=== PATIENT | male | born 1950 | race American Indian/Alaskan Native ===

== ENCOUNTER 2016-11-14 18:31 | Inpatient (IN) | payer MEDICARE ==
[2016-11-14] MEDS ORDERED: TYLENOL ONE (18:46)
[2016-11-14] MEDS ORDERED: NACL 0.9% 500 ML 500 ML IV ONE (18:46)
[2016-11-14] MEDS ORDERED: TYLENOL PO ONE (18:47)
[2016-11-14 19:13] LABS: Basophils % (Auto) 0.5 % (0.0-1.8); Hemoglobin 15.7 gm/dl (11.8-15.2); Mean Corpuscular HGB Conc 31 % (32-34); Mean Corpuscular Hemoglobin 22 pg (28-32); Mean Corpuscular Volume 70 fl (84-94); Platelet Count 172 K/mm3 (140-440); Red Blood Count 7.11 M/mm3 (3.65-5.03); Red Cell Distribution Width 15.9 % (13.2-15.2)
[2016-11-14 19:24] LABS: INR 1.4 (0.87-1.13)
[2016-11-14 19:35] LABS: Albumin 3.3 g/dL (3.9-5); Albumin/Globulin Ratio 0.6 %; BUN/Creatinine Ratio 13.6; Bilirubin,Total 0.5 mg/dL (0.1-1.2); Calcium 8.8 mg/dL (8.4-10.2); Chloride 90.1 mmol/L (98-107); Total Protein 8.7 g/dL (6.3-8.2)
[2016-11-14 20:03] LABS: Potassium 5.9 mmol/L (3.6-5.0)
[2016-11-14] MEDS ORDERED: NACL 0.9% 500 ML 500 ML ONE (21:37)
--- NOTE | 2016-11-14 21:57 | Emergency Department Report ---
HPI - General Chief Complaint: Weakness Time Seen by Provider: 11/14/16 21:26 - HPI HPI: This is a 66-year-old Afro-[place]er male presents to the emergency department with complaint of a one-day history of general weakness, fevers. Today he felt like he was off balance while walking. He has generalized body aches. 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 He had some nausea and vomiting today as well but that is since resolved. He was given some Aleve for his fever and his body aches with only some transient relief. No sick contacts at home. ED Past Medical Hx - Past Medical History Previous Medical History?: Yes Hx Hypertension: Yes Hx CVA: Yes (lefvt side weakness) Additional medical history: hi cholesterol - Surgical History Past Surgical History?: Yes Additional Surgical History: vp treasurer shunt p cva - Social History Smoking Status: Never Smoker Substance Use Type: Alcohol, Prescribed - Medications Home Medications: Home Medications Medication Instructions Recorded Confirmed Last Taken Type Aspirin [Aspirin BABY CHEW TAB] 81 mg PO BID 01/05/14 11/14/16 5 Days Ago History Lisinopril [Zestril] 40 mg PO QDAY 01/05/14 11/14/16 07/11/15 12:00 History Metoprolol [Lopressor TAB] 50 mg PO DAILY 01/05/14 11/14/16 07/11/15 12:00 History Rosuvastatin (Nf) [Crestor] 20 mg PO DAILY 01/05/14 11/14/16 07/11/15 12:00 History amLODIPine [Norvasc] 10 mg PO DAILY 01/05/14 11/14/16 07/11/15 12:00 History ED Review of Systems ROS: Stated complaint: COLD SX/COUGH / Other details as noted in HPI Constitutional: chills, fever, weakness Eyes: denies: eye pain, eye discharge, vision change ENT: denies: ear pain, throat pain Respiratory: denies: cough, shortness of breath, wheezing Cardiovascular: chest pain. denies: palpitations Gastrointestinal: nausea, vomiting. denies: abdominal pain, diarrhea Genitourinary: denies: urgency, dysuria Musculoskeletal: myalgia. denies: joint swelling Skin: denies: rash, lesions Neurological: denies: headache, weakness Physical Exam - Physical Exam Vital Signs: Vital Signs 11/14/16 11/14/16 18:40 21:34 Temperature 101.8 F H 101.1 F H Pulse Rate 114 H 107 H Respiratory 18 27 H Rate Blood Pressure 118/88 Blood Pressure 117/82 [Left] O2 Sat by Pulse 96 97 Oximetry Physical Exam: GENERAL: The patient is well-developed well-nourished. HEENT: Normocephalic. Atraumatic. Extraocular motions are intact. Patient has moist mucous membranes. Pupils equal reactive to light bilaterally. No nystagmus. NECK: Supple. Trachea is midline. CHEST/LUNGS: Clear to auscultation. There is no respiratory distress noted. HEART/CARDIOVASCULAR: Regular. There is mild tachycardia. There is no gallop rub or murmur. ABDOMEN: Abdomen is soft, nontender. Patient has normal bowel sounds. There is no abdominal distention. SKIN: Skin is warm and dry. NEURO: The patient is awake, alert, and oriented. The patient is cooperative. The patient has no focal neurologic deficits. The patient has normal speech. Patient has a slightly unbalanced gait with some ataxia. Cranial nerves II through XII grossly intact. There is a mild left upper extremity drift but the patient has chronic left upper extremity weakness. MUSCULOSKELETAL: There is no tenderness or deformity. There is no limitation range of motion. There is no evidence of acute injury. Radial pulse. 4 bilaterally. ED Course Vital Signs 11/14/16 11/14/16 18:40 21:34 Temperature 101.8 F H 101.1 F H Pulse Rate 114 H 107 H Respiratory 18 27 H Rate Blood Pressure 118/88 Blood Pressure 117/82 [Left] O2 Sat by Pulse 96 97 Oximetry ED Medical Decision Making - Lab Data Result diagrams: 11/14/16 23:55 11/14/16 18:56 - EKG Data -: EKG Interpreted by Me EKG shows normal: sinus rhythm, axis, intervals, QRS complexes, ST-T waves Rate: tachycardia (113 bpm) - EKG Data When compared to previous EKG there are: no significant change Interpretation: unchanged when compared t (01/05/14) - Radiology Data Radiology results: report reviewed, image reviewed interpreted by me: Chest x-ray is slightly rotated but there is a small infiltrate hazy opacity seen to the right lower lobe. CT of the head without contrast shows evidence of prior infarcts involving the periventricular white matter of the right frontal lobe in the left cerebellar hemisphere. No abnormal mass or acute intracranial hemorrhage is identified. There is relative hypodensity are seen in the white matter the cerebral hemispheres. This is a nonspecific finding. It may be related to chronic ischemic change from small vessel disease. - Medical Decision Making 66-year-old male presents to the emergency department with some generalized weakness, feeling unbalanced, and what he says is slower walking and talking than usual. He has a history of CVA with left-sided weakness worse in the upper extremities. Physical exam the patient does not appear to have any acute lateralizing deficits but he says that his speech and movement is abnormal. Eventually I was able to witness the patient ambulatory in the emergency department he does appear unstable with a slightly off balance and/or ataxic gait. CT of the head did not show any bleed, shift, mass or any acute process or changes but does show previous infarcts. Patient presents with a fever and was given Tylenol. He was found have some renal insufficiency so therefore Toradol was not given despite being given Aleve earlier by his family. Chest x- ray does not show any obvious pneumonia but there is a slightly patchy or hazy infiltrate towards the right lower lobe that may just be vasculature seen on this x-ray which is rotated. Nonetheless the patient will be covered with Levaquin. I do not believe that blood cultures were obtained but at this point in the workup the patient is refusing any further needle sticks. While the CT of the head did not show any bleed or any acute ischemic changes at this time, the patient will be admitted to hospital for further evaluation and possible MRI and has been accepted for admission by the hospitalist, Dr. Rocha. - Differential Diagnosis CVA, TIA, Pneumonia, Viral syndrome Critical Care Time: No Critical care attestation.: If time is entered above; I have spent that time in minutes in the direct care of this critically ill patient, excluding procedure time. ED Disposition Clinical Impression: Fever, Weakness, Unsteady gait, VARUN (acute kidney injury), Renal insufficiency Disposition: OP ADMIT IP TO THIS HOSP Is pt being admited?: Yes Condition: Stable Referrals: PRIMARY CARE, [Primary Care Provider] - 3-5 Days Time of Disposition: :59
--- NOTE | 2016-11-14 22:43 | Cat Scan Report ---
FINAL REPORT EXAM: CT HEAD/BRAIN WO CON HISTORY: Weakness TECHNIQUE: Noncontrast serial axial images from skullbase to vertex PRIORS: None. FINDINGS: There is no midline shift. There is ex vacuo change in the frontal horn of the right lateral ventricle. There is asymmetric hypodensity in the periventricular white matter associated with this. Basilar cisterns are patent. No acute intracranial hemorrhage is identified. There are linear hypodense foci in the posterior aspect of the left cerebellar hemisphere. Areas of relative hypodensity are seen in the white matter of the cerebral hemispheres. Atherosclerotic calcifications are noted. Paranasal sinuses and mastoid air cells are well aerated. No acute osseous abnormality is identified. IMPRESSION: 1. There is evidence of prior infarcts involving the periventricular white matter of the right frontal lobe in the left cerebellar hemisphere. 2. No abnormal mass or acute intracranial hemorrhage is identified. 3. Areas of relative hypodensity are seen in the white matter of the cerebral hemispheres. This is a nonspecific finding. It may be related to chronic ischemic change from small vessel disease.
[2016-11-15 00:36] LABS: Basophils % (Auto) 0.5 % (0.0-1.8); Hematocrit 43.2 % (35.5-45.6); Hemoglobin 13.9 gm/dl (11.8-15.2); Mean Corpuscular HGB Conc 32 % (32-34); Mean Corpuscular Volume 70 fl (84-94); Platelet Count 157 K/mm3 (140-440); Red Blood Count 6.16 M/mm3 (3.65-5.03); Red Cell Distribution Width 15.8 % (13.2-15.2); White Blood Count 10.1 K/mm3 (4.5-11.0)
[2016-11-15 00:44] LABS: INR 1.41 (0.87-1.13)
[2016-11-15 00:45] LABS: Partial Thromboplastin Time 29.2 Sec. (24.2-36.6)
[2016-11-15] MEDS ORDERED: TYLENOL PO ONE (00:50)
[2016-11-15] MEDS ORDERED: NACL 0.9% 1000 ML 1,000 ML IV ONE (00:50)
[2016-11-15 01:06] LABS: Mean Corpuscular Hemoglobin 23 pg (28-32)
[2016-11-15 01:13] LABS: Albumin 3.5 g/dL (3.9-5); Albumin/Globulin Ratio 0.8 %; BUN/Creatinine Ratio 15.83; Bilirubin,Total 0.4 mg/dL (0.1-1.2); Calcium 8.5 mg/dL (8.4-10.2); Chloride 92.7 mmol/L (98-107); Potassium 4.3 mmol/L (3.6-5.0); Total Protein 8.1 g/dL (6.3-8.2)
[2016-11-15] MEDS ORDERED: LEVAQUIN 750MG/150ML 750 MG/150 ML BAG IV ONE (01:55)
[2016-11-15] MEDS ORDERED: KIONEX PO ONE (03:17)
[2016-11-15] MEDS ORDERED: ZOFRAN IV PRN (03:24)
[2016-11-15] MEDS ORDERED: TYLENOL PO PRN (03:25)
--- NOTE | 2016-11-15 03:37 | History and Physical Report ---
History of Present Illness Date of examination: 11/15/16 Date of admission: 11/15/2016 Chief complaint: Chief complaint is generalized weakness, other complaints include unsteady gait and slurred speech History of present illness: History of present illness, patient is a 66-year-old male who has been feeling weak all over for the last 24 hours and also complained about unsteady gait and slurred speech. Patient said he tends to fall to one side when he tries to walk , there is no history of chest pain no history of shortness of breath, however patient had nausea vomiting and also fever. There is no history of headache dizziness or numbness anywhere in the body Past History Past Medical History: hypertension, hyperlipidemia, stroke Past Surgical History: Other (P CVA SHUNT) Social history: no significant social history Family history: no significant family history Medications and Allergies Allergies Allergy/AdvReac Type Severity Reaction Status Date / Time No Known Allergies Allergy Verified 01/05/14 22:10 Home Medications Medication Instructions Recorded Confirmed Last Taken Type Aspirin [Aspirin BABY CHEW TAB] 81 mg PO BID 01/05/14 11/14/16 5 Days Ago History Lisinopril [Zestril] 40 mg PO QDAY 01/05/14 11/14/16 07/11/15 12:00 History Metoprolol [Lopressor TAB] 50 mg PO DAILY 01/05/14 11/14/16 07/11/15 12:00 History Rosuvastatin (Nf) [Crestor] 20 mg PO DAILY 01/05/14 11/14/16 07/11/15 12:00 History amLODIPine [Norvasc] 10 mg PO DAILY 01/05/14 11/14/16 07/11/15 12:00 History Active Meds: Active Medications Acetaminophen (Tylenol) 650 mg PO Q4H PRN PRN Reason: Fever Aspirin (Aspirin) 325 mg PO QDAY PERRY Sodium Chloride (Nacl 0.9% 1000 Ml) 1,000 mls @ 250 mls/hr IV ONCE ONE Stop: 11/15/16 04:49 Last Admin: 11/15/16 01:05 Dose: 250 mls/hr Sodium Chloride (Nacl 0.9% 1000 Ml) 1,000 mls @ 75 mls/hr IV DIRECT PERRY Ondansetron HCl (Zofran) 4 mg IV Q6H PRN PRN Reason: Nausea And Vomiting Sodium Polystyrene Sulfonate (Kionex) 30 gm PO ONCE ONE Stop: 11/15/16 03:18 Review of Systems Constitutional: fever, weakness, no weight gain, no chills, no sweats, no lethargy Eyes: bilateral: other (NO BILATERAL EYE SYMPTOMS) Ears, nose, mouth and throat: no ear pain, no ear discharge, no tinnitis, no decreased hearing, no nose pain, no nasal congestion, no nasal discharge, no sinus pressure, no bleeding gums, no dental pain, no mouth pain, no dysphagia, no hoarseness, no sore throat, no swelling in mouth, no swelling in throat, no post-nasal drip, no headache, no vertigo, no pain front of neck, no neck fullness/pressure Cardiovascular: high blood pressure, no chest pain, no orthopnea, no palpitations, no rapid/irregular heart beat, no edema, no syncope, no lightheadedness, no shortness of breath, no dyspnea on exertion, no paroxysmal nocturnal dyspnea, no claudication, no leg edema, no decreased exercise tolerance Respiratory: no cough, no cough with sputum, no excessive sputum, no hemoptysis , no shortness of breath, no dyspnea on exertion, no wheezing, no pleurisy, no pain, no pain on inspiration, no snoring, no sleep apnea, no respiratory infections, no home oxygen Gastrointestinal: nausea, vomiting, no abdominal pain, no diarrhea, no constipation, no change in bowel habits, no melena, no hematochezia, no loss of appetite, no early satiety, no jaundice, no dyspepsia/bloating, no early satiety Genitourinary Male: no dysuria, no hematuria, no flank pain, no urinary frequency, no urinary hesitancy, no nocturia, no incontinence, no genital sores , no impotence, no decreased libido, no testicular pain, no testicular lump, no difficulties fathering child Rectal: no pain, no incontinence, no bleeding, no itching, no hemorrhoids, no flatulence Musculoskeletal: no neck stiffness, no neck pain, no shooting arm pain, no arm numbness/tingling, no low back pain, no shooting leg pain, no morning stiffness , no muscle weakness, no muscle cramps, no myalgias, no atrophy, no frequent falls, no fractures Integumentary: no rash, no pruritis, no redness, no sores, no wounds, no jaundice, no boils, no growths, no bullae, no lesions, no darkening of skin, no depigmentation, no dryness, no color changes, no unusual bruising, no change in hair/nails, no brittle nails, no striae, no hirsutism, no foot/leg ulcers, no onychomycosis Neurological: weakness, change in speech, no head injury, no transient paralysis , no paralysis, no parathesias, no numbness, no tingling, no seizures, no syncope, no tremors, no ataxia, no lack of coordination, no headaches, no migraines, no convulsions, no aphasia, no change in mentation, no confusion, no memory loss, no changes in smell/taste, no balance difficulties, no motor disturbance, no sensory deficit, no double vision, no loss of vision, no hearing difficulties, no burning pain, no paralysis Psychiatric: no memory loss, no change in sleep habits, no sleep disturbances, no insomnia, no hypersomnia, no suicidal ideation, no disorientation, no hallucinations, no depression, no hopelessness, no anhedonia, no anxiety attacks , no difficulties concentrating, no confusion, no irritability, no sadness/ tearfullness, no mood swings Endocrine: no cold intolerance, no heat intolerance, no polyphagia, no excessive thirst, no polydipsia, no polyuria, no deepening of the voice, no thyroid mass, no palpatations, no high blood sugars Hematologic/Lymphatic: no easy bruising, no easy bleeding, no lymphadenopathy, no lymphedema, no thrombophilia, no other Allergic/Immunologic: no urticaria, no allergic rhinitis, no persistent infections, no anaphylaxis, no angioedema, no gluten intolerance, no seasonal allergies Exam - Constitutional Vitals: Temp Pulse Resp BP Pulse Ox 101.1 F H 104 H 28 H 124/92 97 11/14/16 21:34 11/14/16 22:00 11/14/16 22:00 11/14/16 22:00 11/14/16 22:00 General appearance: Present: no acute distress. Absent: well-nourished, disheveled - EENT Eyes: Present: PERRL, EOM intact. Absent: irregular pupil, conjunctival injection, mydriasis ENT: hearing intact, clear oral mucosa, dentition normal, no oropharyngeal erythema, no poor dentition, no edentulous - Neck Neck: Present: supple, normal ROM. Absent: enlarged thyroid, masses or JVD, carotid bruits - Respiratory Respiratory effort: normal - Cardiovascular Rhythm: regular Heart Sounds: Present: S1 & S2, gallop. Absent: systolic murmur, diastolic murmur, click - Extremities Extremities: no ischemia, No edema Peripheral Pulses: within normal limits - Abdominal General gastrointestinal: Present: soft, non-tender, non-distended, normal bowel sounds. Absent: tender, distended, rigid, hepatomegaly, splenomegaly Male genitourinary: Present: deferred - Rectal Rectal Exam: deferred - Integumentary Integumentary: Present: clear, warm, dry, normal turgor. Absent: jaundice, decreased turgor - Musculoskeletal Musculoskeletal: right sided weakness - Psychiatric Psychiatric: cooperative, no agitated, no depressed Results - Labs CBC & Chem 7: 11/14/16 23:55 11/14/16 18:56 Labs: Laboratory Last Values WBC 10.1 K/mm3 (4.5-11.0) 11/14/16 23:55 RBC 6.16 M/mm3 (3.65-5.03) H 11/14/16 23:55 Hgb 13.9 gm/dl (11.8-15.2) 11/14/16 23:55 Hct 43.2 % (35.5-45.6) D 11/14/16 23:55 MCV 70 fl (84-94) L 11/14/16 23:55 MCH 23 pg (28-32) L 11/14/16 23:55 MCHC 32 % (32-34) 11/14/16 23:55 RDW 15.8 % (13.2-15.2) H 11/14/16 23:55 Plt Count 157 K/mm3 (140-440) 11/14/16 23:55 Lymph % (Auto) 11.6 % (13.4-35.0) L 11/14/16 23:55 [place] % (Auto) 11.0 % (0.0-7.3) H 11/14/16 23:55 Eos % (Auto) 0.0 % (0.0-4.3) 11/14/16 23:55 Baso % (Auto) 0.5 % (0.0-1.8) 11/14/16 23:55 Lymph # 1.2 K/mm3 (1.2-5.4) 11/14/16 23:55 [place] # 1.1 K/mm3 (0.0-0.8) H 11/14/16 23:55 Eos # 0.0 K/mm3 (0.0-0.4) 11/14/16 23:55 Baso # 0.0 K/mm3 (0.0-0.1) 11/14/16 23:55 Seg Neutrophils % 76.9 % (40.0-70.0) H 11/14/16 23:55 Seg Neutrophils # 7.8 K/mm3 (1.8-7.7) H 11/14/16 23:55 PT 17.2 Sec. (12.2-14.9) H 11/14/16 23:55 INR 1.41 (0.87-1.13) H 11/14/16 23:55 APTT 29.2 Sec. (24.2-36.6) 11/14/16 23:55 VBG pH 7.322 (7.320-7.420) 11/14/16 22:04 Sodium 131 mmol/L (137-145) L 11/14/16 18:56 Potassium 5.9 mmol/L (3.6-5.0) H D 11/14/16 18:56 Chloride 90.1 mmol/L (98-107) L 11/14/16 18:56 Carbon Dioxide 24 mmol/L (22-30) D 11/14/16 18:56 Anion Gap 23 mmol/L 11/14/16 18:56 BUN 34 mg/dL (9-20) H 11/14/16 18:56 Creatinine 2.5 mg/dL (0.8-1.5) H 11/14/16 18:56 Estimated GFR 31 ml/min 11/14/16 18:56 BUN/Creatinine Ratio 13.60 % 11/14/16 18:56 Glucose 105 mg/dL (75-100) H 11/14/16 18:56 Lactic Acid 1.70 mmol/L (0.7-2.0) 11/14/16 22:04 Calcium 8.8 mg/dL (8.4-10.2) 11/14/16 18:56 Total Bilirubin 0.50 mg/dL (0.1-1.2) 11/14/16 18:56 AST 122 units/L (5-40) H 17 18:56 ALT 97 units/L (7-56) H 11/14/16 18:56 Alkaline Phosphatase 85 units/L (35-129) 11/14/16 18:56 Troponin T < 0.010 ng/mL (0.00-0.029) 11/14/16 00:00 Total Protein 8.7 g/dL (6.3-8.2) H 11/14/16 18:56 Albumin 3.3 g/dL (3.9-5) L 11/14/16 18:56 Albumin/Globulin Ratio 0.6 % 11/14/16 18:56 Assessment and Plan - Patient Problems (1) TIA (transient ischemic attack) Current Visit: Yes Status: Acute Qualifiers: Transient cerebral ischemia type: T Plan to address problem: Patient will be admitted to medical floor on telemetry for the treatment of TIA , patient will have MRI of the brain and MRA of the head without contrast done this morning, patient will also have 2-D echo done this morning as well as bilateral carotid Doppler done this morning. He will also have troponin level checked every 6 hours 2 levels. Patient will have physical therapy and speech therapy consult this morning as part of the workup for TIA and patient will have neurology consult with Dr. Tierney. Patient will be on aspirin 325 mg by mouth daily, and will be on I.V normal saline at 75 ml/hr, patient will be on when necessary medications like Tylenol by mouth for headache and fever and IV Zofran for nausea vomiting, patient will also have nephrology consult with and patient will have swallow studies done before eating. (2) Renal insufficiency Current Visit: Yes Status: Acute (3) Unsteady gait Current Visit: Yes Status: Acute (4) Weakness Current Visit: Yes Status: Acute
[2016-11-15] MEDS: NACL 0.9% 1000 ML 1,000 ML IV SCH ×2 (04:51→20:58)
--- NOTE | 2016-11-15 07:09 | XRay Report ---
Single view chest: History: Possible sepsis. Findings: Normal cardiomediastinal silhouette the trachea is midline. Air space densities right lower lobe. Normal CP angles. Impression: Right lower lobe pneumonia.
[2016-11-15 08:39] LABS: BUN/Creatinine Ratio 15.5; Calcium 7.4 mg/dL (8.4-10.2); Chloride 96.1 mmol/L (98-107); Potassium 4.4 mmol/L (3.6-5.0)
--- NOTE | 2016-11-15 10:46 | Consultation ---
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 CT head was showed chronic ischemic changes but no acute intracranial process. CXR showed pneumonia and he was started on levaquin. lab work showed abnormal Cr and elevated K. renal consult requested for acute kidney injury management Past History Past Medical History: hypertension, hyperlipidemia, stroke Past Surgical History: Other (P CVA SHUNT) Social history: no significant social history Family history: no significant family history Medications and Allergies Allergies Allergy/AdvReac Type Severity Reaction Status Date / Time No Known Allergies Allergy Verified 01/05/14 22:10 Home Medications Medication Instructions Recorded Confirmed Last Taken Type Aspirin [Aspirin BABY CHEW TAB] 81 mg PO BID 01/05/14 11/14/16 5 Days Ago History Lisinopril [Zestril] 40 mg PO QDAY 01/05/14 11/14/16 07/11/15 12:00 History Metoprolol [Lopressor TAB] 50 mg PO DAILY 01/05/14 11/14/16 07/11/15 12:00 History Rosuvastatin (Nf) [Crestor] 20 mg PO DAILY 01/05/14 11/14/16 07/11/15 12:00 History amLODIPine [Norvasc] 10 mg PO DAILY 01/05/14 11/14/16 07/11/15 12:00 History Active Meds: Active Medications Acetaminophen (Tylenol) 650 mg PO Q4H PRN PRN Reason: Fever Aspirin (Aspirin) 325 mg PO QDAY PERRY Sodium Chloride (Nacl 0.9% 1000 Ml) 1,000 mls @ 75 mls/hr IV DIRECT PERRY Last Admin: 11/15/16 04:51 Dose: 75 mls/hr Ondansetron HCl (Zofran) 4 mg IV Q6H PRN PRN Reason: Nausea And Vomiting Pneumococcal Polyvalent Vaccine (Pneumovax 23) 0.5 ml IM .ONCE ONE Stop: 11/15/16 12:01 Review of Systems All systems: negative (weakness, slurred speech) Exam - Vital Signs Vital signs: Vital Signs Temp Pulse Resp BP Pulse Ox 101.8 F H 114 H 18 118/88 96 11/14/16 18:40 11/14/16 18:40 11/14/16 18:40 11/14/16 18:40 11/14/16 18:40 - General Appearance General appearance: well-developed, well-nourished EENT: ATNC, PERRL, mucous membranes moist Neck: Present: neck supple Respiratory: Clear to Ascultation Heart: regular, S1S2 Gastrointestinal: Present: normoactive bowel sounds. Absent: tenderness, distended, guarding Integumentary: no rash, warm and dry Neurologic: no asterixis, alert and oriented x3 Musculoskeletal: Present: other (no edema in BLE) Psychiatric: mood/affect appropriate, cooperative Results - Lab Results 11/14/16 23:55 11/15/16 06:56 Most recent lab results Calcium 7.4 mg/dL (8.4-10.2) L D 11/15/16 06:56 Assessment and Plan - Patient Problems (1) TIA (transient ischemic attack) Current Visit: Yes Status: Acute Qualifiers: Transient cerebral ischemia type: T Plan to address problem: CT head negative for acute process MRA is pending neurology consult is pending on ASA and statins (2) Renal insufficiency Current Visit: Yes Status: Acute Plan to address problem: patient had normal Cr in 07/19, improved Cr since admission with IVF cont NS @ current rate cont to hold lisinopril will check renal US will check urine lytes and protein please renally dose meds strict I&O renal diet avoid nephrotoxins (3) Hypertension Current Visit: Yes Status: Acute Qualifiers: Hypertension type: H Plan to address problem: will monitor, off BP meds cont to hold ACEI (4) Hypo-osmolality and hyponatremia Current Visit: Yes Status: Acute Plan to address problem: improved with IVF (5) Hyperkalemia Current Visit: Yes Status: Acute Plan to address problem: resolved, low K diet (6) Pneumonia Current Visit: Yes Status: Acute Qualifiers: Pneumonia type: P Aspiration pneumonia type: A Laterality: L Lung location: L Plan to address problem: cultures are pending received levaquin
--- NOTE | 2016-11-15 11:13 | Event Note ---
Date: 11/15/16 Patient 66-year-old presented with slurred speech and left-sided weakness. He was admitted to rule out acute ischemic stroke. I have seen and examined him today. Continue current management. Dao for pneumonia.
--- NOTE | 2016-11-15 11:33 | Admit Criteria Form ---
Admission Criteria Documentation: NEUROLOGY GRG Clinical Indications for Admission to Inpatient Care (Place ' X' for any and all applicable criteria): Hospital admission is needed for appropriate care of the patient because of 1 or more of the following: [ ]I. Encephalitis [ ]II. Severe CUFF SETTER LOCKSTITCH infections indicated by 1 or more of the following(1)(2)(3) : [ ]a) Intracranial abscess [ ]b) Spinal abscess or myelitis [ ]c) Tuberculous or other nonbacterial, nonviral CUFF SETTER LOCKSTITCH infection(8) [ ]III. Vasculitis and 1 or more of the following(14)(15): []a) Altered mental status that is severe or persistent or other acute neurologic change []b) Psychosis []c) Seizure [ ]IV. Status epilepticus or repetitive seizures not controlled with emergent treatment [A] (7)(8) [ ]V. Altered mental status that is severe or persistent [ ]. Transient alteration in consciousness with high-risk etiology; examples include (12)(13): [ ]a) Cardiovascular source [ ]b) Cataplexy [ ]VII. Cerebral aneurysm requiring ANY ONE of the following(14): [ ]a) IV antihypertensives or vasoactive agents [ ]b) Sedation and analgesia for suspected leak [ ]c) Need for external ventricular drainage and cerebral perfusion pressure monitoring [ ]d) Emergent evaluation to determine need for surgical clipping or endovascular coiling by interventional radiology. If surgery is required ( Also use Craniotomy, Supratentorial, for Surgery of Bleeding Intracranial Aneurysm (for bleeding aneurysm) or Craniotomy, Supratentorial (for nonbleeding aneurysm) as appropriate. [ ]VIII. New-onset severe neurologic symptom requiring inpatient care indicated by ANY ONE of the following: [ ]a) Aphasia(15) [ ]b) Weakness (grade 3 or less) [ ]c) Paralysis (eg, hemiplegia) [ ]d) Spasticity(16) [ ]e) Dystonia [ ]e) Ataxia(17) [ ]f) Amnesia(18) [ ]g) Involuntary movements(19) [ ]h) Vertigo [ ] Visual loss [ ]i) Other severe neurologic finding (eg, papilledema, mass effect on imaging, myoclonus not treatable at alternative level of care (eg, observation care) [ ]IX. Guillain-Gaines syndrome(20) [ ]X. Myasthenia gravis crisis or inpatient monitoring need as indicated by 1 or more of the following(21): [ ]a) Intensive treatment (eg, course of plasmapheresis) with inadequate outpatient situation to monitor patients status [ ]b) Inadequate airway protection [ ]c) Respiratory insufficiency requiring intubation or inpatient. monitoring [ ]d) Progressive dysphagia with failure to thrive [ ]XI. Multiple sclerosis or other acute demyelinating disease requiring inpatient care as indicated by 1 or more of the following (22)(23): [ ]a) Acute severe deterioration requiring inpatient treatment (eg, IV steroids, plasmapheresis, close observation) [ ]b) Acute complication requiring inpatient care (eg, sepsis, severe decubitus, aspiration) [ ]XII.Parkinson disease requiring inpatient care (Also use Optimal Recovery Care Criteria or General Recovery Criteria as appropriate) indicated by 1 or more of the following(25): [ ]a) Infection (eg, aspiration pneumonia) not treatable at alternative level of care [ ]b Dehydration that is severe or persistent [ ]c) Life-threatening agitation or psychotic behavior not treatable on emergency, observation care, or alternative level (eg, residential) basis [ ]d) Severe medication withdrawal effects (eg, freezing, neuroleptic malignant syndrome) not responsive to emergency and observation care treatment ( as appropriate) [ ]e) Other severe manifestation not treatable at alternative level of care [ ]XII. Amyotrophic lateral sclerosis with inpatient care needs as indicated by ANY ONE of the following(26): [ ]a) Acute complications (eg, aspiration pneumonia, sepsis ) requiring inpatient care ( see other optimal Recovery Guideline as appropriate) [ ]b) Dehydration that is severe persistent AND artificial support desired [ ]c) Inadequate airway protection AND artificial support desired [ ]d) Severe ventilatory insufficiency AND artificial support desired [ ]XIII. Myasthenia gravis crisis or inpatient monitoring need as indicated by 1 or more of the following(21): [] a) Inadequate airway protection []b) Respiratory insufficiency requiring intubation or inpatient monitoring []c) Progressive dysphagia with failure to thrive []d) Intensive treatment (e.g., course of plasmapheresis) with inadequate outpatient situation to monitor patients status [ ]XIV. Multiple sclerosis or other acute demyelinating disease requiring inpatient care indicated by 1 or more of the following[C](36)(43)(44)(45)(46): []a) Acute severe deterioration requiring inpatient treatment (eg, IV steroids, plasmapheresis, close observation) []b) Acute complication requiring inpatient care (eg, sepsis, severe decubitus, aspiration) [ ]XV. Intracranial hypertension (e.g., pseudotumor cerebri) requiring inpatient care (e.g., acute visual loss, inadequate oral intake) (47)(48)(49) [ ]XVI. Parkinson disease requiring inpatient care (Also use Optimal Recovery Care Criteria or General Recovery Criteria as appropriate) indicated by 1 or more of the following(25): [] a) Infection (e.g., aspiration pneumonia) not treatable at alternative level of care []b) Volume depletion not responsive to emergency and observation care treatment (as appropriate) []c) Life-threatening agitation or psychotic behavior not treatable on emergency, observation care, or alternative level (e.g., residential) basis []d) Severe medication withdrawal effects (e.g., freezing, neuroleptic malignant syndrome) not responsive to emergency and observation care treatment (as appropriate) []e) Other severe manifestation not treatable at alternative level of care [ ]XVII. Amyotrophic lateral sclerosis with inpatient care needs as indicated by1 or more of the following(42): []a) Acute complications (eg, aspiration pneumonia, sepsis) requiring inpatient care (see other Optimal Recovery Guideline or General Recovery Guideline as appropriate) []b) Dehydration that is severe or persistent AND artificial support desired []c) Inadequate airway protection AND artificial support desired []d) Severe ventilatory insufficiency AND artificial support desired [ ]XVIII. Severe myopathy, neuropathy, or other neuromuscular disease indicated by 1 or more of the following(42)(52)(53)(54): []a ) New-onset severe diffuse weakness (eg, strength 3/5 or less) []b) Severe dysphagia []c) Dyspnea at rest or with minimal exertion (new) []d) Inadequate airway protection []e) Inadequate ventilation indicated by 1 or more of the following : i) Partial pressure of carbon dioxide greater than 44 mm Hg ( 5.9 kPa) (new) ii) Reduced peak expiratory flow rate (new) iii) Vital capacity less than 50% of predicted (less than 15 mL/kg) iv) Peak inspiratory force less negative than -30 cm H2O (- 2942 Pa) [ ]XVII.Complications of congenital or degenerative disease (eg, infection, seizures, dehydration, injury) not responsive to emergency and observation care treatment (as appropriate ) [C](16)(29)(30) [ ]XVIII.Suspected or confirmed nerve or muscle toxic injury, including ANY ONE of the following: [ ]a) Rhabdomyolysis(31) i) Acute renal failure ii) Dehydration that is severe or persistent iii) Altered mental status that is severe or persistent iv) Electrolyte abnormality that remains after emergency or observation level care ( as appropriate) [ ]b) Botulism(32) [ ]c) Other severe toxin-induced sign or symptom [ ]XIX. Neurologic trauma requiring inpatient treatment (medical) indicated by ANY ONE of the following(33)(34): [ ]a) Vital signs or neurologic signs more frequently than every 4 hours [ ]b) Hyperosmolar therapy [ ]c) Respiratory monitoring [ ]d) Intracranial pressure monitoring and treatment [ ]e) Stabilization and immobilization device placement (eg, braces, body jacket) [ ]f) Intubation & mechanical ventilation for airway protection or therapeutic hyperventilation [ ]g) Other treatment or monitoring needed that requires inpatient level of care [ ]XX.Complications of neurologic devices (eg, ventricular shunt, neurostimulator) requiring 1 or more of the following(35)(36): [ ]a) IV antibiotics with monitoring while awaiting culture results [ ]b) Monitoring for hydrocephalus [X ]XXI. Neurology condition symptom, or finding for which emergency and observation care have failed or are not considered appropriate. See General Criteria: Observation Care ISC, General Admission Criteria GRG, or Pediatric General Admission Criteria GRG guideline as appropriate. The original [facility] [employer] content created by [facility] has been revised. The portions of the content which have been revised are identified through the use of italic text or in bold, and [facility] has neither reviewed nor approved the modified material. All other unmodified content is copyright [facility] Please see references footnoted in the original [facility] 2016 Admission Criteria Met: Yes
--- NOTE | 2016-11-15 11:48 | Consultation ---
History of Present Illness Consult date: 11/15/16 Requesting physician: EARLENE ALVAREZ Reason for Consult: TIA Chief complaint: L sided weaknesx History of present illness: 66 YO M Hx stroke in approx 2009 residual L hemiparesis on ASA 81mg QDay who noted acute working of sx on 11/08. Sx are constant. There are no clear aggravating, relieving or temporal factors. Severity is such to limit use of the L side. Past History Past Medical History: hypertension, hyperlipidemia, stroke Past Surgical History: Other (P CVA SHUNT) Social history: no significant social history Family history: no significant family history Medications and Allergies Allergies Allergy/AdvReac Type Severity Reaction Status Date / Time No Known Allergies Allergy Verified 01/05/14 22:10 Home Medications Medication Instructions Recorded Confirmed Last Taken Type Aspirin [Aspirin BABY CHEW TAB] 81 mg PO BID 01/05/14 11/14/16 5 Days Ago History Lisinopril [Zestril] 40 mg PO QDAY 01/05/14 11/14/16 07/11/15 12:00 History Metoprolol [Lopressor TAB] 50 mg PO DAILY 01/05/14 11/14/16 07/11/15 12:00 History Rosuvastatin (Nf) [Crestor] 20 mg PO DAILY 01/05/14 11/14/16 07/11/15 12:00 History amLODIPine [Norvasc] 10 mg PO DAILY 01/05/14 11/14/16 07/11/15 12:00 History Active Meds: Active Medications Acetaminophen (Tylenol) 650 mg PO Q4H PRN PRN Reason: Fever Aspirin (Aspirin) 325 mg PO QDAY PERRY Sodium Chloride (Nacl 0.9% 1000 Ml) 1,000 mls @ 75 mls/hr IV DIRECT PERRY Last Admin: 11/15/16 04:51 Dose: 75 mls/hr Ondansetron HCl (Zofran) 4 mg IV Q6H PRN PRN Reason: Nausea And Vomiting Pneumococcal Polyvalent Vaccine (Pneumovax 23) 0.5 ml IM .ONCE ONE Stop: 11/15/16 12:01 Review of Systems All systems: negative Neurological: weakness, lack of coordination, gait dysfunction, motor disturbance, no paralysis, no numbness, no seizures, no syncope, no tremors, no headaches, no change in speech, no change in mentation, no sensory deficit Physical Examination - Vital Signs Vital Signs: Vital Signs Temp Pulse Resp BP Pulse Ox 101.8 F H 114 H 18 118/88 96 11/14/16 18:40 11/14/16 18:40 11/14/16 18:40 11/14/16 18:40 11/14/16 18:40 - Constitutional General appearance: comfortable - EENT EENT: Present: ATNC, PERRL, mucous membranes moist, hearing intact, vision intact - Respiratory Respiratory: Present: chest non-tender, normal breath sounds, no respiratory distress - Cardiovascular Cardiovascular: Present: regular rate Extremities: Present: no peripheral edema bilatateraly, no clubbing, cyanosis, no inflammation, no ischemia or petechiae - Gastrointestinal Gastrointestinal: Present: normoactive bowel sounds, soft, non-distended - Integumentary Integumentary: Present: normal - Neurologic Cranial nerve examination: PERRL, EOMI, V1/V2/V3 grossly intact, tongue midline , intact, Intact Vestibulo-ocular r, intact corneal reflex, facial droop (on L mild), normal palatal elevation Speech examination: intact Sensorimotor examination: pronator drift, hemiparesis (on L) Motor examination - right side: 5/5: biceps, triceps, wrist flexion, wrist extension, supervisor counseling and guidance, hip flexors, knee extensors, dorsiflexion, toe extension (EHL) , plantarflexion Motor examination - left side: 4/5: biceps, triceps, wrist flexion, wrist extension, supervisor counseling and guidance, hip flexors, knee extensors, dorsiflexion, toe extension (EHL) , plantarflexion Detailed sensory examination: intact, light touch Reflex and gait examination: Babinski's sign (on L) Reflexes: 0: ankle, 2+: bicep, knee, tricep Cerebellar examination: ataxia (on LUE) - Musculoskeletal Musculoskeletal: Present: no fluid collection, no pain, normal range of motion - Psychiatric Psychiatric: Present: mood/affect appropriate, cooperative Results - Laboratory Findings CBC and BMP: 11/14/16 23:55 11/15/16 06:56 Abnormal Lab Findings: Abnormal Labs 11/15/16 06:56 Sodium 136 L Chloride 96.1 L BUN 31 H Creatinine 2.0 H Calcium 7.4 L D Assessment and Plan 66 YO M Hx HTN/HLD/stroke in approx 2009 residual L hemiparesis on ASA 81mg QDay who noted acute working of sx on 11/08. I am suspicious for recurrent acute lacunar stroke. CTH nonacute R frontal and L cerebellar chronic ischemia. Plan and Recommendation: 1. No indication for pharmacologic thrombolysis with IV tPA or mechanical thrombectomy due to last known normal > 6 hrs from presentation. Current NIHSS 4. 2. Telemetry bed w/ Q4 hour neuro checks 3. Brain imaging: MRI Brain w/o Brock Stroke Protocol 4. Vascular Imaging: MRA Head w/o Brock & MRA Neck w/ Brock Stroke Protocol OR CTA Head/Neck w/ Contrast OR Bilateral Carotid Duplex U/S 5. TTE to eval for possible cardiac source of embolism 6. Serum Labs: HgA1c, LDL. 7. Autoregulate SBP to goal 120-160 as pt is outside permissive HTN window. 8. Secondary stroke prevention: ASA 325mg Daily x 1 then 81mg QDay, add Plavix 75mg Qday & upgrade to full dose statin therapy (Crestor 20mg or 40mg OR Lipitor 40mg or 80mg Daily OR Zocor 40mg QDay) for goal LDL < 70. 9. F/E/N: isotonic IVF prn, prn replete, bedside speech/swallow eval prior to PO intake. 10. DVT Prophylaxis 11. Stroke education, PT/OT/Speech Therapy consults, CM evaluation 12. For any changes in neurologic status, pls obtain STAT CTH w/o contrast and call neurology
[2016-11-15] MEDS ORDERED: PNEUMOVAX 23 IM ONE (12:00)
[2016-11-15 12:25] LABS: Bilirubin,Urine Negative (Negative); Ketones,Urine Negative (Negative)
[2016-11-15 12:28] LABS: Blood,Urine Small (Negative); Nitrite,Urine Negative (Negative); Urobilinogen,Urine < 0.2 mg/dL (<2.0)
[2016-11-15 12:29] LABS: Leukocyte Esterase,Urine Negative (Negative)
[2016-11-15 12:32] LABS: Mucus,Urine Rare /HPF
[2016-11-15 12:35] LABS: Bacteria,Urine 1+ /HPF (Negative)
[2016-11-15] MEDS ORDERED: D5NS 1,000 ML IV SCH (13:00)
--- NOTE | 2016-11-15 16:37 | Ultrasound Report ---
ULTRASOUND RENAL INDICATION: Renal failure. COMPARISON: None similar. FINDINGS: Renal sonography suggests normal/top normal renal cortical echogenicity. Grossly preserved contours. No hydronephrosis. RIGHT KIDNEY measures 9.9 x 4.3 x 4.4 cm with cortical thickness of 1.4 cm. LEFT KIDNEY estimated at 10.3 x 4.9 x 4.7 cm with cortical thickness of 1 cm. URINARY BLADDER suboptimally distended and assessed. CONCLUSION: No acute renal sonographic abnormality, as described. Thank you for the opportunity to participate in this patient's care.
--- NOTE | 2016-11-15 18:35 | Magnetic Resonance Report ---
FINAL REPORT EXAM: MR BRAIN WO CON HISTORY: TIA TECHNIQUE: Multi sequence multi planar MR images obtained of the brain without gadolinium. PRIORS: CT scan of the head from 11/14/2016 FINDINGS: There is moderate atrophy. There is no midline shift. There is malacia in right frontal lobe white matter and right basal ganglia with associated ex vacuo change in the right lateral ventricle. This appears similar to the prior study. Brainstem appears within normal limits. There are foci of hyperintense T2 and hypo intense T1 and FLAIR signal in the left cerebellar hemisphere. There are scattered foci of hyperintense FLAIR signal in the white matter of the cerebral hemispheres. Diffusion-weighted imaging does not show definite evidence of acute or subacute infarct. Orbits appear normal and symmetric. Paranasal sinuses appear clear. The craniocervical junction appears normal. IMPRESSION: 1. Sequelae from prior infarcts are seen in the deep white matter of the right frontal lobe and right basal ganglia as well as the left cerebellar hemisphere. 2. Diffusion-weighted imaging does not show definite evidence of acute or subacute infarct. 3. Foci of hyperintense FLAIR signal are seen in the white matter of the cerebral hemispheres. This is a nonspecific finding. It may be related to chronic ischemic change from small vessel disease.
--- NOTE | 2016-11-15 19:41 | Magnetic Resonance Report ---
FINAL REPORT EXAM: MR MRA/MRV HEAD WO CON HISTORY: TIA TECHNIQUE: MRA of the head was performed utilizing time of flight imaging. PRIORS: None. FINDINGS: No signal is seen in the distal right vertebral artery. The distal left vertebral artery is patent. Basilar artery is patent. There is stenosis in the basilar artery. Posterior cerebral arteries are patent bilaterally. The distal internal carotid arteries, middle cerebral arteries and anterior cerebral arteries are patent bilaterally. There is stenosis in distal right internal carotid artery. IMPRESSION: 1. No signal is seen in the distal right vertebral artery. This may indicate diminished flow, occlusion or reversal of flow. The patient can be further assessed with CT angiography or catheter directed angiography if indicated. 2. There stenosis in the distal right internal carotid artery. C1
[2016-11-15] MEDS: ASPIRIN PO SCH (20:20)
[2016-11-15] MEDS: PLAVIX PO SCH (20:20)
[2016-11-15] MEDS: PEPCID PO SCH (22:51)
--- NOTE | 2016-11-16 09:26 | Progress Note ---
Assessment and Plan Assessment and plan: Transient ischemic attack. Patient with previous stroke presented with slurred speech and left-sided weakness. MRI brain was negative for acute stroke. MRA of Brain showed possible stenosis of right vertebral artery and right internal carotid artery Left hemiparesis. Physical therapy following Abnormal MRA Brain with possible stenosis right vertebral and right internal carotid artery stenosis. Consult vasc surgery Diabetes mellitus type II. Check fingerstick glucose before every meal and at bedtime. Hypertension. Resume metoprolol. Hold Norvasc and I'll see his blood pressure is on the lower side. VARUN due to acute tubular necrosis. This is improving, creatinine is 1.8 today. Nephrology following Pneumonia right lower lobe. Started on Levaquin 750 mg IV daily. Blood cultures no growth up-to-date Fever secondary to pneumonia DVT prophylaxis with Heparin. Full CODE STATUS History Interval history: still has mild weakness left side Hospitalist Physical - Physical exam Narrative exam: Gen Appearance: Not in acute distress, HEENT: normocephalic, atraumatic Neck: supple, no JVD Lungs: clear to auscultation bilaterally, no crackles or wheezes Heart: S1 and S2 regular, no murmurs or gallop Abdomen: Soft, non tender, non distended normal bowel sounds, Extremity: No edema, no clubbing or cyanosis Neuro : Awake,alert,oriented x 3, mild left hemiparesis 4/5 Psych :normal mood - Constitutional Vitals: Temp Pulse Resp BP Pulse Ox 99.1 F 104 H 18 116/77 95 11/16/16 09:05 11/16/16 09:05 11/16/16 09:05 11/16/16 09:05 11/16/16 09:05 General appearance: Present: no acute distress. Absent: well-nourished, disheveled Results - Labs CBC & Chem 7: 11/16/16 12:30 11/16/16 12:30 Labs: Laboratory Last Values WBC 10.1 K/mm3 (4.5-11.0) 11/14/16 23:55 RBC 6.16 M/mm3 (3.65-5.03) H 11/14/16 23:55 Hgb 13.9 gm/dl (11.8-15.2) 11/14/16 23:55 Hct 43.2 % (35.5-45.6) D 11/14/16 23:55 MCV 70 fl (84-94) L 11/14/16 23:55 MCH 23 pg (28-32) L 11/14/16 23:55 MCHC 32 % (32-34) 11/14/16 23:55 RDW 15.8 % (13.2-15.2) H 11/14/16 23:55 Plt Count 157 K/mm3 (140-440) 11/14/16 23:55 Lymph % (Auto) 11.6 % (13.4-35.0) L 11/14/16 23:55 [place] % (Auto) 11.0 % (0.0-7.3) H 11/14/16 23:55 Eos % (Auto) 0.0 % (0.0-4.3) 11/14/16 23:55 Baso % (Auto) 0.5 % (0.0-1.8) 11/14/16 23:55 Lymph # 1.2 K/mm3 (1.2-5.4) 11/14/16 23:55 Webster # 1.1 K/mm3 (0.0-0.8) H 11/14/16 23:55 Eos # 0.0 K/mm3 (0.0-0.4) 11/14/16 23:55 Baso # 0.0 K/mm3 (0.0-0.1) 11/14/16 23:55 Seg Neutrophils % 76.9 % (40.0-70.0) H 11/14/16 23:55 Seg Neutrophils # 7.8 K/mm3 (1.8-7.7) H 11/14/16 23:55 PT 17.2 Sec. (12.2-14.9) H 11/14/16 23:55 INR 1.41 (0.87-1.13) H 11/14/16 23:55 APTT 29.2 Sec. (24.2-36.6) 11/14/16 23:55 VBG pH 7.322 (7.320-7.420) 11/14/16 22:04 Sodium 136 mmol/L (137-145) L 11/15/16 06:56 Potassium 4.4 mmol/L (3.6-5.0) D 11/15/16 06:56 Chloride 96.1 mmol/L (98-107) L 11/15/16 06:56 Carbon Dioxide 23 mmol/L (22-30) 11/15/16 06:56 Anion Gap 21 mmol/L 11/15/16 06:56 BUN 31 mg/dL (9-20) H 11/15/16 06:56 Creatinine 2.0 mg/dL (0.8-1.5) H 11/15/16 06:56 Estimated GFR 41 ml/min 11/15/16 06:56 BUN/Creatinine Ratio 15.50 % 11/15/16 06:56 Glucose 95 mg/dL (75-100) 11/15/16 06:56 Lactic Acid 1.70 mmol/L (0.7-2.0) 11/14/16 22:04 Calcium 7.4 mg/dL (8.4-10.2) L D 11/15/16 06:56 Total Bilirubin 0.50 mg/dL (0.1-1.2) 11/14/16 18:56 AST 122 units/L (5-40) H 11/14/16 18:56 ALT 97 units/L (7-56) H 11/14/16 18:56 Alkaline Phosphatase 85 units/L (35-129) 11/14/16 18:56 Troponin T < 0.010 ng/mL (0.00-0.029) 11/14/16 00:00 Total Protein 8.7 g/dL (6.3-8.2) H 11/14/16 18:56 Albumin 3.3 g/dL (3.9-5) L 11/14/16 18:56 Albumin/Globulin Ratio 0.6 % 11/14/16 18:56 LDL Cholesterol Direct 13 mg/dL (50-130) L 11/15/16 06:56 Urine Color Yellow (Yellow) 11/15/16 11:25 Urine Turbidity Clear (Clear) 11/15/16 11:25 Urine pH 5.0 (5.0-7.0) 11/15/16 11:25 Ur Specific [place] 1.010 (1.003-1.030) 11/15/16 11:25 Urine Protein 30 mg/dl mg/dL (Negative) 11/15/16 11:25 Urine Glucose (UA) Negative mg/dL (Negative) 11/15/16 11:25 Urine Ketones Negative mg/dL (Negative) 11/15/16 11:25 Urine Blood Small (Negative) A 11/15/16 11:25 Urine Nitrite Negative (Negative) 11/15/16 11:25 Urine Bilirubin Negative (Negative) 11/15/16 11:25 Urine Urobilinogen < 0.2 mg/dL (<2.0) 11/15/16 11:25 Ur Leukocyte Esterase Negative (Negative) 11/15/16 11:25 Urine WBC (Auto) 2.0 /HPF (0.0-6.0) 11/15/16 11:25 Urine RBC (Auto) 1.0 /HPF (0.0-6.0) 11/15/16 11:25 U Epithel Cells (Auto) 1.0 /HPF (0-13.0) 11/15/16 11:25 Urine Bacteria (Auto) 1+ /HPF (Negative) 11/15/16 11:25 Hyaline Casts Rare /LPF 11/15/16 11:25 Urine Mucus Rare /HPF 11/15/16 11:25 Urine Creatinine 65.6 mg/dL (0.1-20.0) H 11/15/16 11:25 Protein/Creatinin Ratio 0.50 11/15/16 11:25 Urine Sodium 98 mEq/L 11/15/16 11:25 Urine Total Protein 33 mg/dL (5-11.8) H 11/15/16 11:25
--- NOTE | 2016-11-16 09:29 | Progress Note ---
Assessment and Plan - Patient Problems (1) TIA (transient ischemic attack) Current Visit: Yes Status: Acute Qualifiers: Transient cerebral ischemia type: T Plan to address problem: Neurology on board, follow up MRI of Brain w/o contrast and MRA Head w/o contrast studies, on ASA, plavix, and statin, follow up recs (2) Acute renal failure Current Visit: Yes Status: Acute Qualifiers: Acute renal failure type: A Plan to address problem: Labs pending today On D5 0.9% NS infusion at 75 ml/hr Renally dose medications Status post renal ultrasound on 11/15/16 showed no hydronephrosis Obtain daily weight Blood pressure stable on current regimen Lisinopril on hold [place] Catheter: No Strict intake and output Intake= 1500 ml Output= 500 ml (Net= 1000 ml) Renal plan discussed with Dr Rust Continue supportive therapy (3) Pneumonia Current Visit: Yes Status: Acute Qualifiers: Pneumonia type: P Aspiration pneumonia type: A Laterality: L Lung location: L Plan to address problem: On Levaquin (4) Hypertension Current Visit: Yes Status: Acute Qualifiers: Hypertension type: H Plan to address problem: Blood pressure stable on current regimen Subjective Date of service: 11/16/16 Interval history: Patient reports having right arm/hand swelling from infiltration of peripheral IV (PIV), s/p removal of right arm PIV. Patient with swelling to his hand which makes it difficult to service captain items. No family at bedside Objective - Vital Signs Vital signs: Vital Signs - 12hr 11/16/16 11/16/16 11/16/16 00:00 05:00 05:53 Temperature 100.8 F H 98.5 F Pulse Rate 106 H Pulse Rate [ 107 H 103 H Right Radial] Respiratory 20 21 Rate Blood Pressure 123/85 132/75 [Right Arm] O2 Sat by Pulse 99 94 Oximetry 11/16/16 09:05 Temperature 99.1 F Pulse Rate Pulse Rate [ 104 H Right Radial] Respiratory 18 Rate Blood Pressure 116/77 [Right Arm] O2 Sat by Pulse 95 Oximetry - General Appearance General appearance: well-developed (no acute distress) EENT: ATNC Neck: no JVD Respiratory: Present: Clear to Ascultation. Absent: Rales, Ronchi Cardiology: regular, tachycardia, S1S2 Gastrointestinal: normoactive bowel sounds, no tenderness Integumentary: warm and dry Neurologic: alert and oriented x3 (moves all 4 extremities) Musculoskeletal: other (trace edema to both lower extremities; right arm/hand edematous- peripheral IV removed) Psychiatric: mood/affect appropriate, cooperative - Lab 11/14/16 23:55 11/15/16 06:56 Most recent lab results Calcium 7.4 mg/dL (8.4-10.2) L D 11/15/16 06:56 Urine Creatinine 65.6 mg/dL (0.1-20.0) H 11/15/16 11:25 Urine Sodium 98 mEq/L 11/15/16 11:25 Urine Total Protein 33 mg/dL (5-11.8) H 11/15/16 11:25
--- NOTE | 2016-11-16 10:23 | Fluoroscopy Report ---
Modified barium swallow under video fluoroscopy: History: Dysphagia. Findings: There was no definite anatomic obstruction to be flow of liquids, semisolid and solid food the cervical esophagus. No aspiration. Additional findings would be provided by speech therapist. Impression Findings as detailed above.
[2016-11-16] MEDS: PEPCID PO SCH ×2 (12:28→23:04)
[2016-11-16] MEDS: PLAVIX PO SCH (12:28)
[2016-11-16] MEDS: ASPIRIN PO SCH (12:28)
[2016-11-16 13:40] LABS: Basophils % (Auto) 0.8 % (0.0-1.8); Eosinophils % (Auto) 0.5 % (0.0-4.3); Hematocrit 44.1 % (35.5-45.6); Hemoglobin 14.5 gm/dl (11.8-15.2); Mean Corpuscular HGB Conc 33 % (32-34); Platelet Count 197 K/mm3 (140-440); Red Blood Count 6.32 M/mm3 (3.65-5.03); Red Cell Distribution Width 15.8 % (13.2-15.2); White Blood Count 9.1 K/mm3 (4.5-11.0)
[2016-11-16 13:41] LABS: Mean Corpuscular Hemoglobin 23 pg (28-32); Mean Corpuscular Volume 70 fl (84-94)
[2016-11-16 14:00] LABS: Calcium 8.5 mg/dL (8.4-10.2); Chloride 100.3 mmol/L (98-107); Potassium 4.9 mmol/L (3.6-5.0)
[2016-11-16] MEDS: LOPRESSOR PO SCH ×2 (17:56→23:04)
[2016-11-16] MEDS: HEPARIN SUB-Q SCH ×2 (17:56→23:03)
[2016-11-16] MEDS: LEVAQUIN 750MG/150ML 750 MG/150 ML BAG IV SCH (17:57)
[2016-11-17 05:29] LABS: Hematocrit 42.9 % (35.5-45.6); Hemoglobin 13.7 gm/dl (11.8-15.2); Mean Corpuscular HGB Conc 32 % (32-34); Mean Corpuscular Volume 70 fl (84-94); Red Cell Distribution Width 16.3 % (13.2-15.2); White Blood Count 6.2 K/mm3 (4.5-11.0)
[2016-11-17 05:31] LABS: Mean Corpuscular Hemoglobin 22 pg (28-32); Platelet Count 213 K/mm3 (140-440)
[2016-11-17 05:38] LABS: BUN/Creatinine Ratio 18.12; Calcium 8.3 mg/dL (8.4-10.2); Chloride 102.2 mmol/L (98-107); Phosphorous 2.8 mg/dL (2.5-4.5); Potassium 4.3 mmol/L (3.6-5.0)
[2016-11-17 06:16] LABS: Basophils % (Manual) 0 % (0.0-1.8); Blastocytes % (Manual) 0 %
[2016-11-17 06:17] LABS: Anisocytosis 1+; Diff Status Complete; Elliptocytes 1+; Platelet Estimate Consistent w Auto
[2016-11-17] MEDS: HEPARIN SUB-Q SCH ×3 (06:31→22:03)
[2016-11-17] MEDS: NACL 0.9% 1000 ML 1,000 ML IV SCH ×2 (06:41→22:03)
[2016-11-17] MEDS: LEVAQUIN 750MG/150ML 750 MG/150 ML BAG IV SCH (10:01)
[2016-11-17] MEDS: PLAVIX PO SCH (10:02)
[2016-11-17] MEDS: PEPCID PO SCH ×2 (10:02→22:02)
[2016-11-17] MEDS: LOPRESSOR PO SCH ×2 (10:02→22:02)
[2016-11-17] MEDS: ASPIRIN PO SCH (10:02)
--- NOTE | 2016-11-17 10:20 | Progress Note ---
Assessment and Plan - Patient Problems (1) TIA (transient ischemic attack) Current Visit: Yes Status: Acute Qualifiers: Transient cerebral ischemia type: T Plan to address problem: Neurology on board, on ASA, plavix, and statin, follow up neurology recs MRA Brain showed right internal carotid artery stenosis, possible right vertebral stenosis- vascular surgery consulted (2) Acute renal failure Current Visit: Yes Status: Acute Qualifiers: Acute renal failure type: A Plan to address problem: Renal function reviewed, SCr level decreased to 1.6 today, yesterday's SCr level was 1.8 On 0.9% NS infusion at 75 ml/hr Renally dose medications Obtain daily weight Blood pressure stable on current regimen Lisinopril on hold [place] Catheter: No Strict intake and output Intake= 1240 ml Output= 100 ml recorded (Net= 1140 ml) -> patient reports urinating a lot, but hasn't been saving his urine for measurement. Patient advised to save his urine so staff can record it. Patient voiced understanding. Renal plan discussed with Dr Rust Continue supportive therapy (3) Pneumonia Current Visit: Yes Status: Acute Qualifiers: Pneumonia type: P Aspiration pneumonia type: A Laterality: L Lung location: L Plan to address problem: On Levaquin 750 mg IVPB daily- as per primary team (4) Hypertension Current Visit: Yes Status: Acute Qualifiers: Hypertension type: H Plan to address problem: Blood pressure stable on current regimen Subjective Date of service: 11/17/16 Interval history: Patient reports feeling ok today, eating breakfast at time of my examination, denies nausea or vomiting. No family at bedside. Objective - Vital Signs Vital signs: Vital Signs - 12hr 11/17/16 11/17/16 11/17/16 00:44 05:19 08:31 Temperature 0 F L 98.6 F 98.5 F Pulse Rate [ 77 83 81 Right Radial] Respiratory 20 20 20 Rate Blood Pressure 111/80 111/87 126/82 [Right Arm] O2 Sat by Pulse 97 92 95 Oximetry - General Appearance General appearance: well-developed (no acute distress) EENT: ATNC Neck: no JVD Respiratory: Present: Clear to Ascultation Cardiology: regular, S1S2 Gastrointestinal: normoactive bowel sounds, no tenderness Integumentary: warm and dry Neurologic: alert and oriented x3 Musculoskeletal: other (right hand swelling noted; no edema to both lower extremities) Psychiatric: mood/affect appropriate, cooperative - Lab 11/17/16 04:46 11/17/16 04:46 Most recent lab results Calcium 8.3 mg/dL (8.4-10.2) L 11/17/16 04:46 Phosphorus 2.80 mg/dL (2.5-4.5) 11/17/16 04:46 Urine Creatinine 65.6 mg/dL (0.1-20.0) H 11/15/16 11:25 Urine Sodium 98 mEq/L 11/15/16 11:25 Urine Total Protein 33 mg/dL (5-11.8) H 11/15/16 11:25
--- NOTE | 2016-11-17 14:18 | Progress Note ---
Assessment and Plan Assessment and plan: Patient is a 66-year-old male who has been feeling weak all over for the last 24 hours and also complained about unsteady gait and slurred speech. Patient said he tends to fall to one side when he tries to walk, there is no history of chest pain no history of shortness of breath, however patient had nausea vomiting and also fever, the later has resolved. * RLL Pneumonia, aspiration pneumonitis * Sepsis secondary to above * TIA * Left Hemiparesis * Right Internal carotid stenosis * VARUN- Secondary to ATN * Diabetes Mellitus Type II * HTN * Plan: * Continue supportive care. PT, OT, await vascular evaluation for stenosis of the right vertebral artery and also right ICA * Increase statin therapy, continue BB, ASA, Neurology input noted * Continue abx, IV levaquin no further fever noted, cultures with no growth * Continue insulin therapy * Continue Accurate urine output * Continue to hold ACEI due to renal function * Swallow eval without evidence of Aspiration * Nephrology input noted, CREAT DOWN TO 1.6 Continue gentle hydration. * DVT/GI prophylaxis * Plan of care discussed in detail with the patient. History Interval history: Patient seen and examined, in no acute distress. still with left sided weakness. No adverse event noted by nursing staff. Hospitalist Physical - Physical exam Narrative exam: VITAL SIGNS: Reviewed. GENERAL: The patient appeared well nourished and normally developed. Vital signs as documented. HEAD: No signs of head trauma. EYES: Pupils are equal. Extraocular motions intact. EARS: Hearing grossly intact. MOUTH: Oropharynx is normal. NECK: No adenopathy, no JVD. CHEST: Chest with clear breath sounds bilaterally. No wheezes, rales, or rhonchi. CARDIAC: Regular rate and rhythm. S1 and S2, without murmurs, gallops, or rubs. VASCULAR: No Edema. Peripheral pulses normal and equal in all extremities. ABDOMEN: Soft, without detectable tenderness. No sign of distention. No rebound or guarding, and no masses palpated. Bowel Sounds normal. MUSCULOSKELETAL: Good range of motion of all major joints. Extremities without clubbing, cyanosis or edema. NEUROLOGIC EXAM: Alert and oriented x 3. 4/5 Motor strenghth left upper ext, no sensory deficit. Speech normal. Follows commands. PSYCHIATRIC: Mood normal. SKIN: No rash or lesions. - Constitutional Vitals: Temp Pulse Resp BP Pulse Ox 98.5 F 80 20 126/82 98 11/17/16 08:31 11/17/16 11:50 11/17/16 10:00 11/17/16 08:31 11/17/16 10:00 General appearance: Present: no acute distress. Absent: well-nourished, disheveled Results - Labs CBC & Chem 7: 11/17/16 04:46 11/17/16 04:46 Labs: Laboratory Last Values WBC 6.2 K/mm3 (4.5-11.0) 11/17/16 04:46 RBC 6.10 M/mm3 (3.65-5.03) H 11/17/16 04:46 Hgb 13.7 gm/dl (11.8-15.2) 11/17/16 04:46 Hct 42.9 % (35.5-45.6) 11/17/16 04:46 MCV 70 fl (84-94) L 11/17/16 04:46 MCH 22 pg (28-32) L 11/17/16 04:46 MCHC 32 % (32-34) 11/17/16 04:46 RDW 16.3 % (13.2-15.2) H 11/17/16 04:46 Plt Count 213 K/mm3 (140-440) 11/17/16 04:46 Lymph % (Auto) 14.9 % (13.4-35.0) 11/16/16 12:30 [place] % (Auto) Front Window Cashier 11/17/16 04:46 Eos % (Auto) 0.5 % (0.0-4.3) 11/16/16 12:30 Baso % (Auto) 0.8 % (0.0-1.8) 11/16/16 12:30 Lymph # 1.4 K/mm3 (1.2-5.4) 11/16/16 12:30 [place] # 1.3 K/mm3 (0.0-0.8) H 11/16/16 12:30 Eos # 0.0 K/mm3 (0.0-0.4) 11/16/16 12:30 Baso # 0.1 K/mm3 (0.0-0.1) 11/16/16 12:30 Add Manual Diff Complete 11/17/16 04:46 Total Counted 100 11/17/16 04:46 Seg Neutrophils % 69.9 % (40.0-70.0) 11/16/16 12:30 Seg Neuts % (Manual) 44.0 % (40.0-70.0) 11/17/16 04:46 Band Neutrophils % 12.0 % 11/17/16 04:46 Lymphocytes % (Manual) 25.0 % (13.4-35.0) 11/17/16 04:46 Reactive Lymphs % (Man) 7.0 % 11/17/16 04:46 Monocytes % (Manual) 7.0 % (0.0-7.3) 11/17/16 04:46 Eosinophils % (Manual) 5.0 % (0.0-4.3) H 11/17/16 04:46 Basophils % (Manual) 0 % (0.0-1.8) 11/17/16 04:46 Metamyelocytes % 0 % 11/17/16 04:46 Myelocytes % 0 % 11/17/16 04:46 Promyelocytes % 0 % 11/17/16 04:46 Blast Cells % 0 % 11/17/16 04:46 Nucleated RBC % Not Reportable 11/17/16 04:46 Seg Neutrophils # 6.4 K/mm3 (1.8-7.7) 11/16/16 12:30 Seg Neutrophils # Man 2.7 K/mm3 (1.8-7.7) 11/17/16 04:46 Band Neutrophils # 0.7 K/mm3 11/17/16 04:46 Lymphocytes # (Manual) 1.6 K/mm3 (1.2-5.4) 11/17/16 04:46 Abs React Lymphs (Man) 0.4 K/mm3 11/17/16 04:46 Monocytes # (Manual) 0.4 K/mm3 (0.0-0.8) 11/17/16 04:46 Eosinophils # (Manual) 0.3 K/mm3 (0.0-0.4) 11/17/16 04:46 Basophils # (Manual) 0.0 K/mm3 (0.0-0.1) 11/17/16 04:46 Metamyelocytes # 0.0 K/mm3 11/17/16 04:46 Myelocytes # 0.0 K/mm3 11/17/16 04:46 Promyelocytes # 0.0 K/mm3 11/17/16 04:46 Blast Cells # 0.0 K/mm3 11/17/16 04:46 WBC Morphology Not Reportable 11/17/16 04:46 Hypersegmented Neuts Not Reportable 11/17/16 04:46 Hyposegmented Neuts Not Reportable 11/17/16 04:46 Hypogranular Neuts Not Reportable 11/17/16 04:46 Smudge Cells Not Reportable 11/17/16 04:46 Toxic Granulation Not Reportable 11/17/16 04:46 Toxic Vacuolation Not Reportable 11/17/16 04:46 Dohle Bodies Not Reportable 11/17/16 04:46 Pelger-Huet Anomaly Not Reportable 11/17/16 04:46 Su Rods Not Reportable 11/17/16 04:46 Platelet Estimate Consistent w auto 11/17/16 04:46 Clumped Platelets Not Reportable 11/17/16 04:46 Plt Clumps, EDTA Not Reportable 11/17/16 04:46 Large Platelets Not Reportable 11/17/16 04:46 Giant Platelets Not Reportable 11/17/16 04:46 Platelet Satelliting Not Reportable 11/17/16 04:46 Plt Morphology Comment Not Reportable 11/17/16 04:46 RBC Morphology Not Reportable 11/17/16 04:46 Dimorphic RBCs Not Reportable 11/17/16 04:46 Polychromasia Not Reportable 11/17/16 04:46 Hypochromasia Not Reportable 11/17/16 04:46 Poikilocytosis Not Reportable 11/17/16 04:46 Anisocytosis 1+ 11/17/16 04:46 Microcytosis Not Reportable 11/17/16 04:46 Macrocytosis Not Reportable 11/17/16 04:46 Spherocytes Not Reportable 11/17/16 04:46 Pappenheimer Bodies Not Reportable 11/17/16 04:46 Sickle Cells Not Reportable 11/17/16 04:46 Target Cells Not Reportable 11/17/16 04:46 Tear Drop Cells Not Reportable 11/17/16 04:46 Ovalocytes Not Reportable 11/17/16 04:46 Helmet Cells Not Reportable 11/17/16 04:46 [place] Bodies Not Reportable 11/17/16 04:46 [place] Rings Not Reportable 11/17/16 04:46 Atilio Cells Not Reportable 11/17/16 04:46 Bite Cells Not Reportable 11/17/16 04:46 Crenated Cell Not Reportable 11/17/16 04:46 Elliptocytes 1+ 11/17/16 04:46 Acanthocytes (Spur) Not Reportable 11/17/16 04:46 Rouleaux Not Reportable 11/17/16 04:46 Hemoglobin C Crystals Not Reportable 11/17/16 04:46 Schistocytes Not Reportable 11/17/16 04:46 Malaria parasites Not Reportable 11/17/16 04:46 Jeromy Bodies Not Reportable 11/17/16 04:46 Hem Pathologist Commnt No 11/17/16 04:46 PT 17.2 Sec. (12.2-14.9) H 11/14/16 23:55 INR 1.41 (0.87-1.13) H 11/14/16 23:55 APTT 29.2 Sec. (24.2-36.6) 11/14/16 23:55 VBG pH 7.322 (7.320-7.420) 11/14/16 22:04 Sodium 142 mmol/L (137-145) 11/17/16 04:46 Potassium 4.3 mmol/L (3.6-5.0) 11/17/16 04:46 Chloride 102.2 mmol/L (98-107) 11/17/16 04:46 Carbon Dioxide 24 mmol/L (22-30) 11/17/16 04:46 Anion Gap 20 mmol/L 11/17/16 04:46 BUN 29 mg/dL (9-20) H 11/17/16 04:46 Creatinine 1.6 mg/dL (0.8-1.5) H 11/17/16 04:46 Estimated GFR 52 ml/min 11/17/16 04:46 BUN/Creatinine Ratio 18.12 % 11/17/16 04:46 Glucose 103 mg/dL (75-100) H 11/17/16 04:46 POC Glucose 108 (70-105) H 11/16/16 12:10 Lactic Acid 1.70 mmol/L (0.7-2.0) 11/14/16 22:04 Calcium 8.3 mg/dL (8.4-10.2) L 11/17/16 04:46 Phosphorus 2.80 mg/dL (2.5-4.5) 11/17/16 04:46 Total Bilirubin 0.50 mg/dL (0.1-1.2) 11/14/16 18:56 AST 122 units/L (5-40) H 11/14/16 18:56 ALT 97 units/L (7-56) H 11/14/16 18:56 Alkaline Phosphatase 85 units/L (35-129) 11/14/16 18:56 Troponin T < 0.010 ng/mL (0.00-0.029) 11/14/16 00:00 Total Protein 8.7 g/dL (6.3-8.2) H 11/14/16 18:56 Albumin 3.3 g/dL (3.9-5) L 11/14/16 18:56 Albumin/Globulin Ratio 0.6 % 11/14/16 18:56 LDL Cholesterol Direct 13 mg/dL (50-130) L 11/15/16 06:56 Urine Color Yellow (Yellow) 11/15/16 11:25 Urine Turbidity Clear (Clear) 11/15/16 11:25 Urine pH 5.0 (5.0-7.0) 11/15/16 11:25 Ur Specific [place] 1.010 (1.003-1.030) 11/15/16 11:25 Urine Protein 30 mg/dl mg/dL (Negative) 11/15/16 11:25 Urine Glucose (UA) Negative mg/dL (Negative) 11/15/16 11:25 Urine Ketones Negative mg/dL (Negative) 11/15/16 11:25 Urine Blood Small (Negative) A 11/15/16 11:25 Urine Nitrite Negative (Negative) 11/15/16 11:25 Urine Bilirubin Negative (Negative) 11/15/16 11:25 Urine Urobilinogen < 0.2 mg/dL (<2.0) 11/15/16 11:25 Ur Leukocyte Esterase Negative (Negative) 11/15/16 11:25 Urine WBC (Auto) 2.0 /HPF (0.0-6.0) 11/15/16 11:25 Urine RBC (Auto) 1.0 /HPF (0.0-6.0) 11/15/16 11:25 U Epithel Cells (Auto) 1.0 /HPF (0-13.0) 11/15/16 11:25 Urine Bacteria (Auto) 1+ /HPF (Negative) 11/15/16 11:25 Hyaline Casts Rare /LPF 11/15/16 11:25 Urine Mucus Rare /HPF 11/15/16 11:25 Urine Creatinine 65.6 mg/dL (0.1-20.0) H 11/15/16 11:25 Protein/Creatinin Ratio 0.50 11/15/16 11:25 Urine Sodium 98 mEq/L 11/15/16 11:25 Urine Total Protein 33 mg/dL (5-11.8) H 11/15/16 11:25 - Imaging and Cardiology MRI - head: image reviewed (No acute pathology)
[2016-11-18] MEDS: HEPARIN SUB-Q SCH (06:00)
[2016-11-18 06:04] LABS: Basophils % (Auto) 0.8 % (0.0-1.8); Hematocrit 38.7 % (35.5-45.6); Hemoglobin 12.5 gm/dl (11.8-15.2); Mean Corpuscular HGB Conc 32 % (32-34); Mean Corpuscular Volume 70 fl (84-94); Platelet Count 257 K/mm3 (140-440); Red Blood Count 5.52 M/mm3 (3.65-5.03); Red Cell Distribution Width 16.1 % (13.2-15.2); White Blood Count 5.3 K/mm3 (4.5-11.0)
[2016-11-18 06:06] LABS: Mean Corpuscular Hemoglobin 23 pg (28-32)
[2016-11-18 06:25] LABS: BUN/Creatinine Ratio 15.71; Blood Urea Nitrogen 22 mg/dL (9-20); Carbon Dioxide 30 mmol/L (22-30); Glucose 94 mg/dL (75-100)
[2016-11-18 06:38] LABS: Anion Gap 12 mmol/L; Chloride 105.9 mmol/L (98-107); Potassium 4.5 mmol/L (3.6-5.0); Sodium 143 mmol/L (137-145)
[2016-11-18] MEDS: LEVAQUIN 750MG/150ML 750 MG/150 ML BAG IV SCH (09:12)
[2016-11-18] MEDS: PLAVIX PO SCH (09:12)
[2016-11-18] MEDS: PEPCID PO SCH (09:13)
[2016-11-18] MEDS: ASPIRIN PO SCH (09:13)
[2016-11-18] MEDS: LOPRESSOR PO SCH (09:13)
[2016-11-18] MEDS: NACL 0.9% 1000 ML 1,000 ML IV SCH (10:01)
--- NOTE | 2016-11-18 11:09 | Progress Note ---
Assessment and Plan 66 YO M Hx HTN/HLD/DM2/stroke in approx 2009 residual L hemiparesis on ASA 81mg QDay who noted acute worsening of sx on 11/08. I was suspicious for recurrent acute lacunar stroke but MRI Brain nonacute. Pt has been found to have RLL Pneumonia/aspiration pneumonitis/sepsis so clinical diagnosis likely exacerbated sx d/t infectious derangement. CDs neg. MRA Head R vert occlusion chronic and not relevant to presentation. TTE neg. Clinical syn not consistent with acute stroke/TIA. Plan and Recommendation: 1. Cont home ASA 81/statin 40 for secondary stroke prevention 2. Medical care as you are. 3. No further neuro recs. Subjective Date of service: 11/18/16 Principal diagnosis: L sided weakness Interval history: feeling better. Objective - Vital Sign Vital Signs - 12hr 11/18/16 11/18/16 11/18/16 00:56 05:35 08:40 Temperature 97.5 F L 98.6 F 97.9 F Pulse Rate Pulse Rate [ 0 L 0 L Left Radial] Pulse Rate [ 85 78 87 Right Radial] Respiratory 18 20 18 Rate Blood Pressure Blood Pressure 145/100 115/81 119/83 [Right Arm] O2 Sat by Pulse 95 96 96 Oximetry 11/18/16 11/18/16 09:13 10:29 Temperature Pulse Rate 87 Pulse Rate [ Left Radial] Pulse Rate [ Right Radial] Respiratory 20 Rate Blood Pressure 119/83 Blood Pressure [Right Arm] O2 Sat by Pulse 98 Oximetry - General Apperance Constitutional: comfortable - EENT EENT: ATNC, PERRL, mucous membranes moist, hearing intact, vision intact - Respiratory Respiratory: chest non-tender, normal breath sounds, no respiratory distress - Cardiovascular Cardiovascular: regular rate Extremities: no peripheral edema bilat, no clubbing, cyanosis, no inflammation, no ischemia or petechiae - Gastrointestinal Gastrointestinal: normoactive bowel sounds, soft, non-distended - Neurologic Cranial nerve examination: PERRL, EOMI, VFF, V1/V2/V3 grossly intact, tongue midline, intact, Intact Vestibulo-ocular r, intact corneal reflex, facial droop (on L) Speech examination: intact Motor examination - right side: 5/5: biceps, triceps, wrist flexion, wrist extension, accounting systems analyst, hip flexors, knee extensors, dorsiflexion, toe extension (EHL) , plantarflexion Motor examination - left side: 4/5: biceps, triceps, wrist flexion, wrist extension, accounting systems analyst, hip flexors, knee extensors, dorsiflexion, toe extension (EHL) , plantarflexion Detailed sensory examination: intact, light touch Cerebellar examination: ataxia (LUE) - Musculoskeletal Musculoskeletal: no fluid collection, no pain, normal range of motion - Psychiatric Psychiatric: mood/affect appropriate, cooperative - Laboratory Findings CBC and BMP: 11/18/16 05:19 11/18/16 05:19 Abnormal Lab Findings: Abnormal Labs 11/15/16 11/15/16 11/15/16 06:56 06:56 11:25 RBC MCV MCH RDW [place] % (Auto) Eos % (Auto) [place] # Eosinophils % (Manual) Sodium 136 L Chloride 96.1 L Carbon Dioxide BUN 31 H Creatinine 2.0 H Glucose POC Glucose Calcium 7.4 L D LDL Cholesterol Direct 13 L Urine Blood Small A Urine Creatinine Urine Total Protein 11/15/16 11/16/16 11/16/16 11:25 12:10 12:30 RBC 6.32 H MCV 70 L MCH 23 L RDW 15.8 H [place] % (Auto) 13.9 H Eos % (Auto) [place] # 1.3 H Eosinophils % (Manual) Sodium Chloride Carbon Dioxide BUN Creatinine Glucose POC Glucose 108 H Calcium LDL Cholesterol Direct Urine Blood Urine Creatinine 65.6 H Urine Total Protein 33 H 11/16/16 11/17/16 11/17/16 12:30 04:46 04:46 RBC 6.10 H MCV 70 L MCH 22 L RDW 16.3 H [place] % (Auto) Eos % (Auto) [place] # Eosinophils % (Manual) 5.0 H Sodium Chloride Carbon Dioxide 21 L BUN 27 H 29 H Creatinine 1.8 H 1.6 H Glucose 115 H 103 H POC Glucose Calcium 8.3 L LDL Cholesterol Direct Urine Blood Urine Creatinine Urine Total Protein 11/18/16 11/18/16 05:19 05:19 RBC 5.52 H MCV 70 L MCH 23 L RDW 16.1 H [place] % (Auto) 15.5 H Eos % (Auto) 5.0 H [place] # Eosinophils % (Manual) Sodium Chloride Carbon Dioxide BUN 22 H Creatinine Glucose POC Glucose Calcium 8.0 L LDL Cholesterol Direct Urine Blood Urine Creatinine Urine Total Protein
--- NOTE | 2016-11-18 11:14 | Consultation ---
History of Present Illness - Reason for Consult Consult date: 11/18/16 Evaluate for Acute IRU - History of Present Illness 66 y.o. male who presented due to acute onset of generalized weakness/fatigue, unsteady gait with reported dragging of his left leg, and slurred speech. Pt also reported associated nausea, vomiting and fever. On admission, pt was found to have right lower lobe pneumonia, started on levaquin; treated for acute renal failure, now much improved; resolved hyperkalemia; resolved hyponatremia. CT brain and MRI brain noted to be negative for acute CVA; prior infarcts noted at right basal ganglia, right frontal lobe, and left cerebellar hemisphere. MRA abnormal with noted stenosis at distal right internal carotid arterty; questionable flow at right vertebral artery. Vascular surgery consult is pending for further evaluation. On today, pt reports ongoing difficulty with left foot dragging, unsteady gait, and left arm weakness. Consult placed for post-acute placement recommendations. Past History Past Medical History: hypertension, hyperlipidemia, stroke (with left shoulder instability; did not require assistive device for gait following stroke) Past Surgical History: Other (P CVA SHUNT) Social history: no significant social history, Lives alone. denies: smoking Family history: hypertension, stroke Medications and Allergies Allergies Allergy/AdvReac Type Severity Reaction Status Date / Time No Known Allergies Allergy Verified 01/05/14 22:10 Home Medications Medication Instructions Recorded Confirmed Last Taken Type Aspirin [Aspirin BABY CHEW TAB] 81 mg PO BID 01/05/14 11/14/16 5 Days Ago History Metoprolol [Lopressor TAB] 50 mg PO DAILY 01/05/14 11/14/16 07/11/15 12:00 History amLODIPine [Norvasc] 10 mg PO DAILY 01/05/14 11/14/16 07/11/15 12:00 History Rosuvastatin (Nf) [Crestor] 20 mg PO DAILY #30 tablet 11/18/16 Unknown Rx Active Meds: Active Medications Acetaminophen (Tylenol) 650 mg PO Q4H PRN PRN Reason: Fever Aspirin (Aspirin) 325 mg PO QDAY [facility] Last Admin: 11/18/16 09:13 Dose: 325 mg Atorvastatin Calcium (Lipitor) 40 mg PO QHS [facility] Last Admin: 11/17/16 22:03 Dose: 40 mg Clopidogrel Bisulfate (Plavix) 75 mg PO QDAY [facility] Last Admin: 11/18/16 09:12 Dose: 75 mg Famotidine (Pepcid) 20 mg PO BID [facility] Last Admin: 11/18/16 09:13 Dose: 20 mg Heparin Sodium (Porcine) (Heparin) 5,000 unit SUB-Q Q8HR [facility] Last Admin: 11/18/16 06:00 Dose: 5,000 unit Sodium Chloride (Nacl 0.9% 1000 Ml) 1,000 mls @ 75 mls/hr IV DIRECT [facility] Last Admin: 11/18/16 10:01 Dose: 75 mls/hr Dextrose/Sodium Chloride (D5ns) 1,000 mls @ 75 mls/hr IV DIRECT [facility] Last Admin: 11/15/16 22:51 Dose: 75 mls/hr Levofloxacin/Dextrose (Levaquin 750mg/150ml) 750 mg in 150 mls @ 100 mls/hr IV Q24HR [facility] PRN Reason: Protocol Last Admin: 11/18/16 09:12 Dose: 100 mls/hr Metoprolol Tartrate (Lopressor) 25 mg PO BID [facility] Last Admin: 11/18/16 09:13 Dose: 25 mg Ondansetron HCl (Zofran) 4 mg IV Q6H PRN PRN Reason: Nausea And Vomiting Review of Systems All systems: negative Ears, nose, mouth and throat: no headache Gastrointestinal: no nausea, no vomiting Genitourinary Male: no dysuria Neurological: weakness (left extremities), gait dysfunction Exam - Constitutional Vitals: Vital Signs - 12hr 11/18/16 11/18/16 11/18/16 00:56 05:35 08:40 Temperature 97.5 F L 98.6 F 97.9 F Pulse Rate Pulse Rate [ 0 L 0 L Left Radial] Pulse Rate [ 85 78 87 Right Radial] Respiratory 18 20 18 Rate Blood Pressure Blood Pressure 145/100 115/81 119/83 [Right Arm] O2 Sat by Pulse 95 96 96 Oximetry 11/18/16 11/18/16 09:13 10:29 Temperature Pulse Rate 87 Pulse Rate [ Left Radial] Pulse Rate [ Right Radial] Respiratory 20 Rate Blood Pressure 119/83 Blood Pressure [Right Arm] O2 Sat by Pulse 98 Oximetry General appearance: no acute distress - EENT Eyes: EOM intact ENT: hearing intact - Neck Neck: supple, normal ROM - Respiratory Respiratory effort: normal Respiratory: bilateral: CTA - Cardiovascular Rhythm: regular Heart Sounds: Present: S1 & S2 - Extremities Extremities: No edema - Gastrointestinal General gastrointestinal: Present: soft, non-tender, normal bowel sounds - Integumentary Integumentary: Present: clear - Musculoskeletal Musculoskeletal: left sided weakness (decreased ROM at left shoulder to approximately 90 degrees forward flexion; slightly decreased laborer road strength; mild ataxia noted at LLE), other (4/5 strength throughout) - Neurologic Neurologic: CNII-XII intact, other (sensation grossly intact) - Psychiatric Psychiatric: appropriate mood/affect, intact judgment & insight, memory intact, cooperative - Allied health notes Allied health notes reviewed: OT (SBA-Tanya for ADLs; Matias for bed mobility and transfers) - Labs CBC & Chem 7: 11/18/16 05:19 11/18/16 05:19 Labs: Laboratory Results - last 72 hr 11/15/16 11/15/16 11/15/16 06:56 11:25 11:25 WBC RBC Hgb Hct MCV MCH MCHC RDW Plt Count Lymph % (Auto) [place] % (Auto) Eos % (Auto) Baso % (Auto) Lymph # [place] # Eos # Baso # Add Manual Diff Total Counted Seg Neutrophils % Seg Neuts % (Manual) Band Neutrophils % Lymphocytes % (Manual) Reactive Lymphs % (Man) Monocytes % (Manual) Eosinophils % (Manual) Basophils % (Manual) Metamyelocytes % Myelocytes % Promyelocytes % Blast Cells % Nucleated RBC % Seg Neutrophils # Seg Neutrophils # Man Band Neutrophils # Lymphocytes # (Manual) Abs React Lymphs (Man) Monocytes # (Manual) Eosinophils # (Manual) Basophils # (Manual) Metamyelocytes # Myelocytes # Promyelocytes # Blast Cells # WBC Morphology Hypersegmented Neuts Hyposegmented Neuts Hypogranular Neuts Smudge Cells Toxic Granulation Toxic Vacuolation Dohle Bodies Pelger-Huet Anomaly Su Rods Platelet Estimate Clumped Platelets Plt Clumps, EDTA Large Platelets Giant Platelets Platelet Satelliting Plt Morphology Comment RBC Morphology Dimorphic RBCs Polychromasia Hypochromasia Poikilocytosis Anisocytosis Microcytosis Macrocytosis Spherocytes Pappenheimer Bodies Sickle Cells Target Cells Tear Drop Cells Ovalocytes Helmet Cells [place] Bodies [place] Rings Atilio Cells Bite Cells Crenated Cell Elliptocytes Acanthocytes (Spur) Rouleaux Hemoglobin C Crystals Schistocytes Malaria parasites Jeromy Bodies Hem Pathologist Commnt Sodium Potassium Chloride Carbon Dioxide Anion Gap BUN Creatinine Estimated GFR BUN/Creatinine Ratio Glucose POC Glucose Calcium Phosphorus LDL Cholesterol Direct 13 L Urine Color Yellow Urine Turbidity Clear Urine pH 5.0 Ur Specific [place] 1.010 Urine Protein 30 mg/dl Urine Glucose (UA) Negative Urine Ketones Negative Urine Blood Small A Urine Nitrite Negative Urine Bilirubin Negative Urine Urobilinogen < 0.2 Ur Leukocyte Esterase Negative Urine WBC (Auto) 2.0 Urine RBC (Auto) 1.0 U Epithel Cells (Auto) 1.0 Urine Bacteria (Auto) 1+ Hyaline Casts Rare Urine Mucus Rare Urine Creatinine Protein/Creatinin Ratio Urine Sodium 98 Urine Total Protein 11/15/16 11/16/16 11/16/16 11:25 08:34 12:10 WBC RBC Hgb Hct MCV MCH MCHC RDW Plt Count Lymph % (Auto) [place] % (Auto) Eos % (Auto) Baso % (Auto) Lymph # [place] # Eos # Baso # Add Manual Diff Total Counted Seg Neutrophils % Seg Neuts % (Manual) Band Neutrophils % Lymphocytes % (Manual) Reactive Lymphs % (Man) Monocytes % (Manual) Eosinophils % (Manual) Basophils % (Manual) Metamyelocytes % Myelocytes % Promyelocytes % Blast Cells % Nucleated RBC % Seg Neutrophils # Seg Neutrophils # Man Band Neutrophils # Lymphocytes # (Manual) Abs React Lymphs (Man) Monocytes # (Manual) Eosinophils # (Manual) Basophils # (Manual) Metamyelocytes # Myelocytes # Promyelocytes # Blast Cells # WBC Morphology Hypersegmented Neuts Hyposegmented Neuts Hypogranular Neuts Smudge Cells Toxic Granulation Toxic Vacuolation Dohle Bodies Pelger-Huet Anomaly Su Rods Platelet Estimate Clumped Platelets Plt Clumps, EDTA Large Platelets Giant Platelets Platelet Satelliting Plt Morphology Comment RBC Morphology Dimorphic RBCs Polychromasia Hypochromasia Poikilocytosis Anisocytosis Microcytosis Macrocytosis Spherocytes Pappenheimer Bodies Sickle Cells Target Cells Tear Drop Cells Ovalocytes Helmet Cells [place] Bodies [place] Atilio Cells Bite Cells Crenated Cell Elliptocytes Acanthocytes (Spur) Rouleaux Hemoglobin C Crystals Schistocytes Malaria parasites Jeromy Bodies Hem Pathologist Commnt Sodium Potassium Chloride Carbon Dioxide Anion Gap BUN Creatinine Estimated GFR BUN/Creatinine Ratio Glucose POC Glucose 94 108 H Calcium Phosphorus LDL Cholesterol Direct Urine Color Urine Turbidity Urine pH Ur Specific [place] Urine Protein Urine Glucose (UA) Urine Ketones Urine Blood Urine Nitrite Urine Bilirubin Urine Urobilinogen Ur Leukocyte Esterase Urine WBC (Auto) Urine RBC (Auto) U Epithel Cells (Auto) Urine Bacteria (Auto) Hyaline Casts Urine Mucus Urine Creatinine 65.6 H Protein/Creatinin Ratio 0.50 Urine Sodium Urine Total Protein 33 H 11/16/16 11/16/16 11/17/16 12:30 12:30 04:46 WBC 9.1 6.2 RBC 6.32 H 6.10 H Hgb 14.5 13.7 Hct 44.1 42.9 MCV 70 L 70 L MCH 23 L 22 L MCHC 33 32 RDW 15.8 H 16.3 H Plt Count 197 213 Lymph % (Auto) 14.9 [place] % (Auto) 13.9 H Chemical Research Technician Eos % (Auto) 0.5 Baso % (Auto) 0.8 Lymph # 1.4 [place] # 1.3 H Eos # 0.0 Baso # 0.1 Add Manual Diff Complete Total Counted 100 Seg Neutrophils % 69.9 Seg Neuts % (Manual) 44.0 Band Neutrophils % 12.0 Lymphocytes % (Manual) 25.0 Reactive Lymphs % (Man) 7.0 Monocytes % (Manual) 7.0 Eosinophils % (Manual) 5.0 H Basophils % (Manual) 0 Metamyelocytes % 0 Myelocytes % 0 Promyelocytes % 0 Blast Cells % 0 Nucleated RBC % Not Reportable Seg Neutrophils # 6.4 Seg Neutrophils # Man 2.7 Band Neutrophils # 0.7 Lymphocytes # (Manual) 1.6 Abs React Lymphs (Man) 0.4 Monocytes # (Manual) 0.4 Eosinophils # (Manual) 0.3 Basophils # (Manual) 0.0 Metamyelocytes # 0.0 Myelocytes # 0.0 Promyelocytes # 0.0 Blast Cells # 0.0 WBC Morphology Not Reportable Hypersegmented Neuts Not Reportable Hyposegmented Neuts Not Reportable Hypogranular Neuts Not Reportable Smudge Cells Not Reportable Toxic Granulation Not Reportable Toxic Vacuolation Not Reportable Dohle Bodies Not Reportable Pelger-Huet Anomaly Not Reportable Su Rods Not Reportable Platelet Estimate Consistent w auto Clumped Platelets Not Reportable Plt Clumps, EDTA Not Reportable Large Platelets Not Reportable Giant Platelets Not Reportable Platelet Satelliting Not Reportable Plt Morphology Comment Not Reportable RBC Morphology Not Reportable Dimorphic RBCs Not Reportable Polychromasia Not Reportable Hypochromasia Not Reportable Poikilocytosis Not Reportable Anisocytosis 1+ Microcytosis Not Reportable Macrocytosis Not Reportable Spherocytes Not Reportable Pappenheimer Bodies Not Reportable Sickle Cells Not Reportable Target Cells Not Reportable Tear Drop Cells Not Reportable Ovalocytes Not Reportable Helmet Cells Not Reportable [place] Bodies Not Reportable [place] Rings Not Reportable Atilio Cells Not Reportable Bite Cells Not Reportable Crenated Cell Not Reportable Elliptocytes 1+ Acanthocytes (Spur) Not Reportable Rouleaux Not Reportable Hemoglobin C Crystals Not Reportable Schistocytes Not Reportable Malaria parasites Not Reportable Jeromy Bodies Not Reportable Hem Pathologist Commnt No Sodium 139 Potassium 4.9 Chloride 100.3 Carbon Dioxide 21 L Anion Gap 23 BUN 27 H Creatinine 1.8 H Estimated GFR 46 BUN/Creatinine Ratio 15.00 Glucose 115 H POC Glucose Calcium 8.5 Phosphorus 3.00 LDL Cholesterol Direct Urine Color Urine Turbidity Urine pH Ur Specific [place] Urine Protein Urine Glucose (UA) Urine Ketones Urine Blood Urine Nitrite Urine Bilirubin Urine Urobilinogen Ur Leukocyte Esterase Urine WBC (Auto) Urine RBC (Auto) U Epithel Cells (Auto) Urine Bacteria (Auto) Hyaline Casts Urine Mucus Urine Creatinine Protein/Creatinin Ratio Urine Sodium Urine Total Protein 11/17/16 11/18/16 11/18/16 04:46 05:19 05:19 WBC 5.3 RBC 5.52 H Hgb 12.5 Hct 38.7 MCV 70 L MCH 23 L MCHC 32 RDW 16.1 H Plt Count 257 Lymph % (Auto) 26.1 [place] % (Auto) 15.5 H Eos % (Auto) 5.0 H Baso % (Auto) 0.8 Lymph # 1.4 [place] # 0.8 Eos # 0.3 Baso # 0.0 Add Manual Diff Total Counted Seg Neutrophils % 52.6 Seg Neuts % (Manual) Band Neutrophils % Lymphocytes % (Manual) Reactive Lymphs % (Man) Monocytes % (Manual) Eosinophils % (Manual) Basophils % (Manual) Metamyelocytes % Myelocytes % Promyelocytes % Blast Cells % Nucleated RBC % Seg Neutrophils # 2.8 Seg Neutrophils # Man Band Neutrophils # Lymphocytes # (Manual) Abs React Lymphs (Man) Monocytes # (Manual) Eosinophils # (Manual) Basophils # (Manual) Metamyelocytes # Myelocytes # Promyelocytes # Blast Cells # WBC Morphology Hypersegmented Neuts Hyposegmented Neuts Hypogranular Neuts Smudge Cells Toxic Granulation Toxic Vacuolation Dohle Bodies Pelger-Huet Anomaly Su Rods Platelet Estimate Clumped Platelets Plt Clumps, EDTA Large Platelets Giant Platelets Platelet Satelliting Plt Morphology Comment RBC Morphology Dimorphic RBCs Polychromasia Hypochromasia Poikilocytosis Anisocytosis Microcytosis Macrocytosis Spherocytes Pappenheimer Bodies Sickle Cells Target Cells Tear Drop Cells Ovalocytes Helmet Cells [place] Bodies [place] Cells Bite Cells Crenated Cell Elliptocytes Acanthocytes (Spur) Rouleaux Hemoglobin C Crystals Schistocytes Malaria parasites Jeromy Bodies Hem Pathologist Commnt Sodium 142 143 Potassium 4.3 4.5 Chloride 102.2 105.9 Carbon Dioxide 24 30 Anion Gap 20 12 BUN 29 H 22 H Creatinine 1.6 H 1.4 Estimated GFR 52 > 60 BUN/Creatinine Ratio 18.12 15.71 Glucose 103 H 94 POC Glucose Calcium 8.3 L 8.0 L Phosphorus 2.80 3.00 LDL Cholesterol Direct Urine Color Urine Turbidity Urine pH Ur Specific [place] Urine Protein Urine Glucose (UA) Urine Ketones Urine Blood Urine Nitrite Urine Bilirubin Urine Urobilinogen Ur Leukocyte Esterase Urine WBC (Auto) Urine RBC (Auto) U Epithel Cells (Auto) Urine Bacteria (Auto) Hyaline Casts Urine Mucus Urine Creatinine Protein/Creatinin Ratio Urine Sodium Urine Total Protein - Imaging and cardiology Chest x-ray: report reviewed CT Scan - head: report reviewed MRI - head: report reviewed Assessment and Plan Patient was assessed and evaluated for Acute Inpatient Rehab Unit. 66 y.o. male with history of prior CVA; negative work-up for acute CVA, however , now with new symptoms since last CVA. Pt was previously independent and lived alone; reports some left shoulder instability requiring left shoulder injection in the past. At this time, pt reports ongoing gait instability and decreased shoulder strength from baseline. Noted abnormal MRA; pending Vascular Surgery recommendations. Symptoms possibly exacerbated due to active pneumonia. Pt would benefit from short course of facility based rehabilitation to improve functional independence; continue to follow renal function; ongoing ABX for pnuemonia. Pt educated on placement options and agrees; case discussed with case management. Will continue to follow. Thank you for consultation. - Patient Problems (1) Pneumonia Current Visit: Yes Status: Acute Qualifiers: Pneumonia type: P Aspiration pneumonia type: A Laterality: L Lung location: L (2) TIA (transient ischemic attack) Current Visit: Yes Status: Acute Qualifiers: Transient cerebral ischemia type: T (3) Unsteady gait Current Visit: Yes Status: Acute (4) Acute renal failure Current Visit: Yes Status: Acute Qualifiers: Acute renal failure type: A
[2016-11-18 11:28] VITALS: BP 122/88
--- NOTE | 2016-11-18 11:34 | Discharge Summary ---
Providers - Providers Date of Admission: 11/15/16 03:13 Date of discharge: 11/18/16 Attending physician: МАРИЯ DAMIAN MD 11/15/16 06:15 Consult to Physician [CONS] Routine Consulting Provider: KIERAN UNDERWOOD Reason For Exam: RENAL INSUFFICIENCY Place consult to:: yes Notified:: Dr Mendes Was contact made?: Yes If yes, spoke with:: DR Mendes 11/15/16 06:27 Physical Therapy Evaluation and Treat [CONS] Routine Comment: Reason For Exam: TIA 11/15/16 06:28 Consult to Physician [CONS] Routine Consulting Provider: MARIA FERNANDA MILLER Reason For Exam: TIA,SLURRED SPEECH,UNSTEADY GAIT Place consult to:: MARIA FERNANDA MILLER Notified:: livier Phone number called:: [phone] Was contact made?: No Time called:: 08:08 Speech Therapy Evaluation and Treat [CONS] Routine Reason For Exam: TIA AND SLURRED SPECH 11/16/16 12:27 Occupational Therapy Evaluate and Treat [CONS] Routine Comment: Reason For Exam: left upper ext weakness 11/16/16 13:05 Consult to Physician [CONS] Routine Consulting Provider: CURTIS GASTON Reason For Exam: Carotid artery stenosis, vertebral artery stenosis Place consult to:: Dr. Gaston Notified:: Mayco VALDEZ Phone number called:: Was contact made?: Yes If yes, spoke with:: Gasper service Time called:: 15:54 11/17/16 10:50 Consult to Physician [CONS] Routine Consulting Provider: LEATHA GARCIA Reason For Exam: cva, left sided weakness Place consult to:: Dr. Garcia Notified:: Td VALDEZcareer services coordinator physician: RESISTANCE WELDING MACHINE OPERATOR Hospitalization Condition: Stable Disposition: [id number]/TX-06 HOME UNDER HOME [facility] Time spent for discharge: 35 MINS Core Measure Documentation - Palliative Care Palliative Care/ Comfort Measures: Not Applicable Exam - Constitutional Vitals: Temp Pulse Resp BP Pulse Ox 97.7 F 0 L 18 122/88 98 11/18/16 11:25 11/18/16 11:25 11/18/16 11:25 11/18/16 11:25 11/18/16 10:29 Plan Activity: advance as tolerated, fall precautions Diet: low fat, low cholesterol Special Instructions: record daily weights, record daily BP diary, physical therapy, occupational therapy Additional Instructions: FOLLOW UP WITH NEUROLOGY OUTPATIENT IN 1 WEEK Follow up with: PRIMARY CARE,MD [Primary Care Provider] - 3-5 Days Prescriptions: Rosuvastatin (Nf) [Crestor] 20 mg PO DAILY #30 tablet
--- NOTE | 2016-11-18 11:59 | Progress Note ---
Assessment and Plan (1) TIA (transient ischemic attack) Current Visit: Yes Status: Acute Qualifiers: Transient cerebral ischemia type: T Plan to address problem: Neurology on board, on ASA, plavix, and statin, follow up neurology recs (2) Acute renal failure Current Visit: Yes Status: Acute Qualifiers: Acute renal failure type: A Plan to address problem: Cr cont to improve d/c IVF Ok to be discharged from renal standpoint, to be followed in our office wthin 1- 2 weeks Renally dose medications Obtain daily weight Blood pressure stable on current regimen Lisinopril on hold [place] Catheter: No Strict intake and output (3) Pneumonia Current Visit: Yes Status: Acute Qualifiers: Pneumonia type: P Aspiration pneumonia type: A Laterality: L Lung location: L Plan to address problem: as per primary team (4) Hypertension Current Visit: Yes Status: Acute Qualifiers: Hypertension type: H Plan to address problem: Blood pressure stable on current regimen Subjective Date of service: 11/18/16 Principal diagnosis: L sided weakness Interval history: feels better overall, ready to go home Objective - Vital Signs Vital signs: Vital Signs - 12hr 11/18/16 11/18/16 11/18/16 00:56 05:35 08:40 Temperature 97.5 F L 98.6 F 97.9 F Pulse Rate Pulse Rate [ 0 L 0 L Left Radial] Pulse Rate [ 85 78 87 Right Radial] Respiratory 18 20 18 Rate Blood Pressure Blood Pressure 145/100 115/81 119/83 [Right Arm] O2 Sat by Pulse 95 96 96 Oximetry 11/18/16 11/18/16 11/18/16 09:13 10:29 11:25 Temperature 97.7 F Pulse Rate 87 Pulse Rate [ 0 L Left Radial] Pulse Rate [ 87 Right Radial] Respiratory 20 18 Rate Blood Pressure 119/83 Blood Pressure 122/88 [Right Arm] O2 Sat by Pulse 98 Oximetry - General Appearance General appearance: well-developed, well-nourished EENT: ATNC, PERRL, mucous membranes moist Neck: no JVD, no carotid bruit Respiratory: Present: Clear to Ascultation. Absent: Rales, Ronchi Cardiology: regular, S1S2 Gastrointestinal: normoactive bowel sounds, no tenderness, no distended, no guarding Integumentary: no rash, warm and dry Neurologic: no focal deficit, no asterixis, alert and oriented x3 Musculoskeletal: other (no edema in BLE) Psychiatric: mood/affect appropriate, cooperative - Lab 11/18/16 05:19 11/18/16 05:19 Most recent lab results Calcium 8.0 mg/dL (8.4-10.2) L 11/18/16 05:19 Phosphorus 3.00 mg/dL (2.5-4.5) 11/18/16 05:19 Urine Creatinine 65.6 mg/dL (0.1-20.0) H 11/15/16 11:25 Urine Sodium 98 mEq/L 11/15/16 11:25 Urine Total Protein 33 mg/dL (5-11.8) H 11/15/16 11:25
--- NOTE | 2016-11-18 14:30 | Consultation ---
History of Present Illness - Reason for Consult Consult date: 11/18/16 Carotid Stenosis - History of Present Illness This patient is a 66-year-old male was admitted via the emergency room on 2016 due to generalized weakness, slurring of speech, and an exacerbation of left sided weakness. The patient is a relatively poor historian, therefore much of the medical history is taken from the medical record. The patient reports onset of symptoms several days prior to admission. He was reportedly was traveling from [place] to [place] when the event occurred. He was subsequently transported back to [place]. His symptoms did not improve, therefore he was transported to the emergency room where he has since been evaluated and admitted. CT scan showed prior infarctions involving the periventricular white matter of the right frontal lobe and the left cerebellar hemisphere. An MRI suggest sequela from prior infarcts on the right frontal lobe, basal ganglia, and left cerebellar hemisphere. There was no evidence of acute/subacute infarction. An MR angiogram was reported as no signal seen in the distal right vertebral artery , and a stenosis of the distal right internal carotid artery. A carotid duplex showed less than 50% stenosis bilaterally. A vascular surgery consult has been requested to further evaluate. The patient states he takes an 81 mg aspirin daily, and has done so since his previous stroke in 2007. He reported a residual left-sided weakness since his previous stroke. He reports an exacerbation of these symptoms with this event. 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 denies: smoking Family history: hypertension, stroke Medications and Allergies Allergies Allergy/AdvReac Type Severity Reaction Status Date / Time No Known Allergies Allergy Verified 01/05/14 22:10 Home Medications Medication Instructions Recorded Confirmed Last Taken Type Aspirin [Aspirin BABY CHEW TAB] 81 mg PO BID 01/05/14 11/14/16 5 Days Ago History Metoprolol [Lopressor TAB] 50 mg PO DAILY 01/05/14 11/14/16 07/11/15 12:00 History amLODIPine [Norvasc] 10 mg PO DAILY 01/05/14 11/14/16 07/11/15 12:00 History Rosuvastatin (Nf) [Crestor] 20 mg PO DAILY #30 tablet 11/18/16 Unknown Rx Review of Systems All systems: negative Exam - Constitutional Vitals: Temp Pulse Resp BP Pulse Ox 97.7 F 96 H 18 122/88 98 11/18/16 11:25 11/18/16 14:02 11/18/16 11:25 11/18/16 11:25 11/18/16 10:29 General appearance: Present: no acute distress - EENT Eyes: Present: EOM intact ENT: hearing intact - Neck Neck: Present: supple (trachea midline) - Respiratory Respiratory effort: normal - Extremities Extremities: no ischemia, pulses intact (palp radial pulses bilat) - Psychiatric Psychiatric: cooperative - Neurologic Neurologic: moves all extremities (weaker on the left) Results - Labs CBC & Chem 7: 11/18/16 05:19 11/18/16 05:19 Labs: Abnormal lab results 11/18/16 11/18/16 Range/Units 05:19 05:19 RBC 5.52 H (3.65-5.03) M/mm3 MCV 70 L (84-94) fl MCH 23 L (28-32) pg RDW 16.1 H (13.2-15.2) % Sebastian % (Auto) 15.5 H (0.0-7.3) % Eos % (Auto) 5.0 H (0.0-4.3) % BUN 22 H (9-20) mg/dL Calcium 8.0 L (8.4-10.2) mg/dL Assessment and Plan This patient presented with vague symptoms including exacerbation of left-sided weakness. He has a history of a previous stroke in 2007. MRI was negative for acute infarction. MR angiogram suggests possible occluded right vertebral artery, and distal ( intracranial) internal carotid artery stenosis. This MRI was a time of flight study. It is susceptible to artifact and dropout. If you're concerned that these findings are legitimate, then would recommend CT angiogram to further evaluate. Unfortunately, he has compromised kidney function. Would avoid contrast exposure due to the risk of contrast nephropathy at present. If his symptoms continue despite best medical management (including antiplatelet, statin therapy, and medical optimization) then connected to consider further evaluation at that point. Patient can follow up in our office as an outpatient. - Patient Problems (1) Carotid stenosis Status: Acute Qualifiers: Laterality: L (2) History of CVA with residual deficit Status: Acute (3) Hypertension Status: Acute Qualifiers: Hypertension type: H (4) Renal insufficiency Status: Acute
--- NOTE | 2016-11-19 08:01 | Vascular Lab Report ---
CAROTID DUPLEX STUDY: RIGHT PSVEDV CCA PROX:7416 CCA DIST:9922 ICA PROX:9030 ICA MID:6820 ICA DIST:7121 ECA: 8714 VERT: 43 4 LEFT PSVEDV CCA PROX:8312 CCA DIST:7220 ICA PROX:6420 ICA MID:6824 ICA DIST:5324 ECA: 7610 VERT: 59 22 REASON FOR EXAM: TIA. COMMENTS ON THE RIGHT: Doppler frequency analysis is consistent with 16 to 49 percent diameter reduction of the internal carotid artery. Minimal amount of plaque is seen. The common carotid artery is patent. The external carotid artery is patent. The vertebral artery has antegrade flow. COMMENTS ON THE LEFT: Doppler frequency analysis is consistent with 16 to 49 percent diameter reduction of the internal carotid artery. Minimal amount of plaque is seen. The common carotid artery is patent. The external carotid artery is patent. The vertebral artery has antegrade flow. IMPRESSION: Less than 50% diameter reduction in the internal carotid arteries bilaterally. Consider repeat carotid artery duplex in 12 months.
[2016-11-19] MEDS ORDERED: LEVAQUIN PO SCH (10:00)
== END 2016-11-18 14:06 | disposition home health service (06) | DRG 871 ==
LOC: ED 18:31 → 4A 11-15 03:13
PROVIDERS: ADMIT Internal Medicine; ATTEND Internal Medicine
PROC: 3E0234Z Introduction of Serum, Toxoid and Vaccine into Muscle, Percutaneous Approach (ICD-10-PCS; principal; 2016-11-15)
DX: A41.9 Sepsis, unspecified organism (principal); J69.0 Pneumonitis due to inhalation of food and vomit; N17.0 Acute kidney failure with tubular necrosis; G45.9 Transient cerebral ischemic attack, unspecified; G81.94 Hemiplegia, unspecified affecting left nondominant side; E87.1 Hypo-osmolality and hyponatremia; R26.81 Unsteadiness on feet; E87.5 Hyperkalemia; I10 Essential (primary) hypertension; E78.5 Hyperlipidemia, unspecified; E11.9 Type 2 diabetes mellitus without complications; I65.23 Occlusion and stenosis of bilateral carotid arteries; Z86.73 Personal history of transient ischemic attack (TIA), and cerebral infarction without residual deficits; Z82.49 Family history of ischemic heart disease and other diseases of the circulatory system; Z82.3 Family history of stroke; Z23 Encounter for immunization
CPT/HCPCS: 36415; 70450; 70544; 70551; 71010; 74230; 76770; 80048; 80053; 81001; 82140; 82570; 82805; 82962; 83721; 84100; 84156; 84300; 84484; 85007; 85025; 85610; 85730; 87040; 87086; 90732; 93005; 93010; 93306; 93880; 96361; 96374; A9270-GY; G8978-GP; G8979-GP; G8987-GO; G8988-GO; G8989-GO; J1644; J1956; J7030; J7040; J7042